=== PATIENT | female | born 1975 | race Caucasian/White ===

== ENCOUNTER 2020-03-05 11:48 | Emergency (ER) | payer OTHER, SELFPAY ==
[2020-03-05 12:19] VITALS: BP 147/60; PULSE 81; RESP 17; TEMP 36.4; O2SAT 98; BMI 37.8
--- NOTE | 2020-03-05 12:35 | XR_ITS ---
EXAMINATION: XR KNEE, RIGHT CLINICAL INFORMATION: Right knee pain. COMPARISON: None TECHNIQUE: Four views of the right knee. FINDINGS: Bones and soft tissues are normal. No fracture or joint effusion. Alignment is anatomic. Joint spaces are well maintained. No abnormal soft tissue calcification. XR/XR knee RT 4V IMPRESSION: Unremarkable right knee.
--- NOTE | 2020-03-05 12:46 | ED_ITS ---
HPI - General Adult General Chief complaint: Extremity Injury, Lower Stated complaint: KNEE PAIN,NO INJ Time Seen by Provider: 03/05/20 12:17 Source: patient Mode of arrival: ambulatory Limitations: no limitations History of Present Illness HPI narrative: 44 yo female previously healthy here with acute on chronic right knee pain worsened with weight bearing x 1 1/2 months. She has had these symptoms for years. No injury or trauma. Today when she woke up she felt like her knee was unstable and it might give out on her and that is when she became concerned and brought herself into the emergency department. She did call her primary care doctor into the appointment tomorrow morning at 07:45. Denies redness, warmth, fevers, chills, posterior knee pain. Onset (ago): month(s) (1 1/2 months ) Location: lower extremity (Right knee ) Radiation: non-radiation Severity: mild Quality: aching Pain Consistency: intermittent Relieving factors: none Exacerbating factors: none Associated symptoms: denies other symptoms Treatments prior to arrival: none Related Data Previous Rx's Medication Instructions Recorded naproxen 500 mg PO BID PRN #10 tab 03/05/20 Allergies Allergy/AdvReac Type Severity Reaction Status Date / Time SEASONAL ALLERGIES Allergy Intermediate RUNNY Uncoded 11/22/19 15:52 NOSE, PRESSURE HEADACHE Review of Systems Review of Systems: Yes all other systems are reviewed and are negative Constitutional: Constitutional: Reports no additional constitutional c omplaints, Denies body ache(s), Denies chills, Denies fever(s), Denies headache(s) and Denies weakness Eyes: Eyes: Reports no additional eye complaints and Denies change in vision ENT: Reports system reviewed and no additional complaints, except as documented, Denies dizziness, Denies headache(s), Denies nasal congestion, Denies nasal discharge and Denies neck pain Cardiovascular: Cardiovascular: Reports no additional cardiovascular complaints, Denies chest pain, Denies leg edema and Denies dyspnea Respiratory: Respiratory: Reports no additional respiratory complaints, Denies cough and Denies dyspnea Gastrointestinal: Gastrointestinal: Reports no additional gastrointestinal complaints, Denies abdominal pain, Denies diarrhea, Denies nausea and Denies vomiting Genitourinary: Genitourinary: Reports no additional female genitourinary complaints and Denies urinary incontinence Musculoskeletal: Musculoskeletal: Reports no additional musculoskeletal complaints, Denies back pain, Reports arthralgias, Denies joint swelling, Denies limited range of motion, Denies neck pain, Denies numbness and Denies tingling Integumentary/Breasts: Skin/Breast: Reports system reviewed and no additional complaints, except as docu and Denies rash Neurologic: Reports system reviewed and no additional complaints, except as documented, Denies Abnormal speech present, Denies dizziness, Denies headache(s), Denies numbness, Denies tingling and Denies weakness PMFSH Past Medical History Attestation statement: The following information was validated with the patient. Source: old records reviewed, obtained from family and nursing notes reviewed Social History Social History Advance Directives: No Advance Directives Information Provided: No Physical Exam Vital Signs: Vital Signs: Last Vital Signs Temp 97.5 F 03/05/20 12:19 Pulse 81 03/05/20 12:19 Resp 17 03/05/20 12:19 BP 147/60 H 03/05/20 12:19 Pulse Ox 98 03/05/20 12:19 Body Mass Index 37.8 Const: General: cooperative, healthy appearing, comfortable and no acute distress Orientation/consciousness: patient oriented x3 Limitations: no limitations HENMT: Head: Yes normal to inspection Ears: hearing grossly normal bilaterally General nose exam: Normal external nose present Face and sinus: Yes normal facial exam Mouth: Normal oral and palatal mucosa present Throat: Yes posterior oropharynx normal Eyes: General: appearance normal, both eyes and all related structures Pupils: Equal, round and reactive pupils present Neck: Neck: Yes normal visual inspection Chest: Chest palpation & inspection: normal inspection of the chest Resp: Effort & Inspection: normal respiratory effort Auscultation: clear to auscultation bilaterally Cardio: Rate: regular rate Rhythm: regular rhythm Peripheral pulses: Peripheral pulses 2+ throughout GI: Inspection: Yes normal to inspection Palpation (GI): Soft to palpation and nontender Auscultation: normal bowel sounds Back/Spine/Pelvis: Thoracic/Lumbar Spine: thoracic and lumbar spine normal to inspection Skin: General skin exam: no rashes or lesions noted Neuro: General: patient oriented x3, no focal motor deficits and normal sensation to monofilament Cranial nerves: Yes Equal, round and reactive pupils present Cognition (Neuro): normal cognition Speech: No Abnormal speech present Gait exam (Neuro): Normal gait present Motor exam (neuro): 5/5 motor strength present throughout Extrem: Other: Right knee is normal to appearance. The patient has tenderness over the general anterior knee and along the medial and lateral joint lines. She is able to flex and extend the knee with no difficulty. There is no swelling, warmth, redness. General: Yes normal to inspection Course Course Course Narrative: X-rays negative for underlying bony abnormality. Discussed findings with the patient. May be underlying ligament injury versus sprain vs meniscus injury. Recommended Daniel wrap, crutches with limited weight-bearing, rice and follow-up with primary care doctor for further instructions. Reviewed worrisome signs and symptoms and when to return to the emergency department. Comfortable discharge home. Medical Decision Making Imaging Data knee xray: Attestation: I personally reviewed and interpreted this imaging study as follows: Radiologist's impression: EXAMINATION: XR KNEE, RIGHT CLINICAL INFORMATION: Right knee pain. COMPARISON: None TECHNIQUE: Four views of the right knee. FINDINGS: Bones and soft tissues are normal. No fracture or joint effusion. Alignment is anatomic. Joint spaces are well maintained. No abnormal soft tissue calcification. XR/XR knee RT 4V IMPRESSION: Unremarkable right knee. Discharge Plan Discharge Clinical Impression: Knee sprain Qualifiers: Encounter type: initial encounter Involved ligament of knee: unspecified ligament Laterality: right Qualified Code(s): S83.91XA - Sprain of unspecified site of right knee, initial encounter Patient Disposition: Home, Self-Care Instructions: Knee Sprain (ED) Additional Instructions: Use the Daniel wrap and crutches for the next several days Limit weight-bearing Keep your appointment tomorrow with her primary care doctor Apply ice Prescriptions: New naproxen 500 mg tablet 500 mg PO BID PRN (Reason: pain) Qty: 10 RF: 0 Referrals: Physician,Unknown [Primary Care Provider] - 2 days Stand Alone Forms: Work/School Release Interventions: ED Discharge Assessment Last Done: 03/05/20 13:36 Discharge Date/Time: 03/05/20 13:37
== END 2020-03-05 13:37 | disposition home or self-care (01) ==
PROVIDERS: Emergency Provider Emergency Medicine Emergency Medical Services
DX: S83.91XA Sprain of unspecified site of right knee, initial encounter (principal); X58.XXXA Exposure to other specified factors, initial encounter; Y93.9 Activity, unspecified; Y92.9 Unspecified place or not applicable; Y99.9 Unspecified external cause status
CPT/HCPCS: 73564; 99282; 99283

== ENCOUNTER 2023-07-21 11:13 | Emergency (ER) | payer OTHER, SELFPAY ==
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
[2023-07-21 11:30] VITALS: BP 106/63; PULSE 73; RESP 16; TEMP 37; O2SAT 99; BMI 41.0
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
[2023-07-21] MEDS: Ibuprofen 600 MG TABLET PO (11:35)
--- OUTSIDE RECORDS SUMMARY | 2023-07-21 14:24 | XMS_ITS | Continuity of Care Document ---
Author Organization [facility] Address [address] [place] [id number]- Care Team Providers Care Supervising Producer Name Role Phone Flora Jay NP Primary Care Physician [place] [facility] [place]26[place] - 05/14/[address] [id number] Attending Physician: Flora Jay NP Admitting Physician: Flora Jay NP Referring Physician: Flora Jay NP Allergies, Adverse Reactions, Alerts Substance Reaction Severity Status NKA Active Immunizations Given and Recorded Vaccine Date Status Refusal Reason tetanus/diphtheria/pertussis, acel(Tdap) 1 04/05/19 Given Influenza Virus Vaccine (oldterm) 2 12/08/18 Recor ded 1Result Comment: [facility] 14021-652-39 2Result Comment: work Medications betamethasone topical dipropionate 0.05% cream 1 application, Topically, 2 times a day, # 45 Gm, 0 Refills, Maintenance, 06/11/19 15:36:00 EDT, Cream, [facility], 1 application Topically 2 times a day, 162, cm, 04/25/19 9:34:00 EST, Height Start Date: 06/11/19 Status: Ordered CPAP Machine See Instructions, # 1 each, Maintenance, patient should be started on AutoCpap 8-20cm H20 with compliance data followed. use nightly for lifetime 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, 03/02/18 10:45:00 EST, Compound Start Date: 03/02/18 Status: Ordered CPAP Equipment See Instructions, # 1 each, Refills 11, Tot. Refills 11, Maintenance, Mask,tubing, filters, head gear, chin strap, wther chamber. use nightly for lifetime with compressor. 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, 162, cm, 12/21/19 8:09:00 EDT, Height Start Date: 12/21/19 Status: Ordered Singulair 10 mg oral tablet 10 mg, 1, tablet, By Mouth, Daily, # 30 tablet, Refills 0, Tot. Refills 0, Maintenance, 05/31/18 16:17:26 EDT, Route to Pharmacy Electronically, [id number], [facility] [place] Start Date: 05/31/18 Stop Date: 06/30/18 Status: Ordered Problem List Condition Effective Dates Status Health Status Inform ant Allergic rhinitis(Confirmed) Active Chronic headaches(Confirmed) Active Chronic GERD(Confirmed) Active Sleep apnea(Confirmed) Active Social History Social History Type Response Smoking Status Never (less than 100 in lifetime) entered on: 10/19/18 Sex
--- OUTSIDE RECORDS SUMMARY | 2023-07-21 14:25 | XMS_ITS | Continuity of Care Document ---
Author Organization [facility] Address [address] [place] [id number]- Care Team Providers Care Catalogue Compiler Name Role Phone Flora Jay NP Primary Care Physician Encounter [facility] Date(s): 06/11/19 - 06/18/19 [facility] [address] [place] [id number]- [facility] Encounter Diagnosis Rash(Discharge Diagnosis) - 06/11/19 Attending Physician: Flora Jay NP Allergies, Adverse Reactions, Alerts Substance Reaction Severity Status NKA Active Immunizations Given and Recorded Vaccine Date Status Refusal Reason tetanus/diphtheria/pertussis, acel(Tdap) 1 04/05/19 Given Influenza Virus Vaccine (oldterm) 2 12/08/18 Recor ded 1Result Comment: [facility] [id number] 2Result Comment: work Medications betamethasone topical dipropionate 0.05% cream 1 application, Topically, 2 times a day, # 45 Gm, 0 Refills, Maintenance, 06/11/19 15:36:00 EDT, Cream, [facility], 1 application Topically 2 times a [...] 2 times a day, # 30 tablet, 0 Refills, Maintenance, 07/04/18 13:45:44 EDT, EC Tablet Start Date: 07/04/18 Status: Ordered Singulair 10 mg oral tablet 10 mg, 1, tablet, By Mouth, Daily, # 30 tablet, Refills 0, Tot. Refills 0, Maintenance, 05/31/18 16:17:26 EDT, Route to Pharmacy Electronically, [id number], [facility] [place] Start Date: 05/31/18 Stop Date: 06/30/18 Status: Ordered Problem List Condition Effective Dates Status Health Status Inform ant Allergic rhinitis(Confirmed) Active Chronic headaches(Confirmed) Active Chronic GERD(Confirmed) Active Sleep apnea(Confirmed) Active Diagnosis Diagnosis Type Effective Dates Health Status Clini tyler Service Informant Rash Discharge Diagnosis 06/11/19 Social History Social History Type Response Smoking Status Never (less than 100 in lifetime) entered on: 10/19/18 Sex
--- OUTSIDE RECORDS SUMMARY | 2023-07-21 14:25 | XMS_ITS | Continuity of Care Document ---
Author Organization [facility] Address [address] [facility], [address] Floor, [address] [place] [phone]- Care Team Providers Care Edi Programmer Analyst Name Role Phone Pierre MCLEOD, Flora Núñez Primary Care Physician Encounter [facility] Date(s): 02/13/19 - 02/23/19 [facility] [address] [facility], 3rd Floor, [address] [place] [address]- [facility] Attending Physician: Cynthia Waters Admitting Physician: Admtr, Cynthia Referring Physician: Admtr, Ar8 Allergies, Adverse Reactions, Alerts Substance Reaction Severity Status NKA Active Immunizations Given and Recorded Vaccine Date Status Refusal Reason Influenza Virus Vaccine (oldterm) 1 12/08/18 Recor ded 1Result Comment: work Medications CPAP Machine See Instructions, # 1 each, [...] EST, Compound Start Date: 03/02/18 Status: Ordered ibuprofen 800 mg oral tablet 800 mg, 1, tablet, By Mouth, 3 times a day, for 30 days, # 90 tablet, Refills 0, Tot. Refills 0, Acute 03/07/19 10:07:02 EST, 02/05/19 10:07:02 EST, Route to Pharmacy Electronically, [id number], [facility]... Start Date: 02/05/19 Stop Date: 03/07/19 Status: Ordered Lotrisone 0.05%-1% cream 1 application, Topically, 2 times a day, # 45 Gm, 0 Refills, Maintenance, 11/15/18 14:58:46 EDT, Cream, 1 application Topically 2 times a day Start Date: 11/15/18 Status: Ordered omeprazole 20 mg oral delayed [...] 05/31/18 16:17:26 EDT, Route to Pharmacy Electronically, [id number], [facility] - Start Date: 05/31/18 Stop Date: 06/30/18 Status: Ordered Problem List Condition Effective Dates Status Health Status Inform ant Allergic rhinitis(Confirmed) Active Chronic headaches(Confirmed) Active Chronic GERD(Confirmed) Active Sleep apnea(Confirmed) Active Social History Social History Type Response Smoking Status Never (less than 100 in lifetime) entered on: 10/19/18 Sex
--- OUTSIDE RECORDS SUMMARY | 2023-07-21 14:25 | XMS_ITS | Continuity of Care Document ---
Author Organization [facility] Address [address] [place] [phone]- Care Team Providers Care Pigment Making Supervisor Name Role Phone Flora Jay NP Primary Care Physician Encounter [facility] Date(s): 06/18/21 - 06/25/[address] [address]- Encounter Diagnosis Neck ache(Discharge Diagnosis) - 06/18/21 Muscle spasm(Discharge Diagnosis) - 06/18/21 Attending Physician: Flora Jay NP Allergies, Adverse Reactions, Alerts No Known Allergies Immunizations Given and Recorded Vaccine Date Status Refusal Reason influenza virus vaccine, inactivated 1 12/29/20 Gi markie SARS-CoV-2 (COVID-19) mRNA-1273 vaccine 04/04/20 R ecorded SARS-CoV-2 (COVID-19) mRNA-1273 vaccine 03/04/20 R ecorded tetanus/diphtheria/pertussis, acel(Tdap) 2 04/05/19 Given Influenza Virus Vaccine (oldterm) 3 12/08/18 Recor ded 1Result Comment: [facility][NOTE 3]# [id number] 2Result Comment: [facility][NOTE 3] [id number] 3Result Comment: work Medications CPAP Machine See Instructions, [...] EST, Compound Start Date: 03/02/18 Status: Ordered cyclobenzaprine 5 mg oral tablet 1 tablet = 5 mg, By Mouth, 3 times a day, for 10 days, # 30 tablet, 0 Refills, Acute 06/28/21 14:51:00 EDT, 06/18/21 14:51:00 EDT, Tablet, [facility], Partial fill upon patient request if the prescription is for a schedule II opioid drug., 1... Start Date: 06/18/21 Stop Date: 06/28/21 Status: Ordered ibuprofen 800 mg oral tablet 800 mg, 1, tablet, By Mouth, 3 times a day, PRN, # 40 tablet, Refills 0, Tot. Refills 0, Maintenance, for pain, 06/18/21 14:50:00 EDT, Route to Pharmacy Electronically, [facility], Partial fill upon patient request if the prescription is for... Start Date: 06/18/21 Stop Date: 07/18/21 Status: Ordered omeprazole 20 mg oral delayed release tablet 1 tablet = 20 mg, By Mouth, Daily, # 30 tablet, 0 Refills, Maintenance, 06/18/21 14:53:00 EDT, CR Tablet, [facility], Partial fill upon patient request if the prescription is for a scheduleII opioid drug., 162, cm, 06/18/21 14:35:00 EDT, He... Start Date: 06/18/21 Status: Ordered Problem List Condition Effective Dates Status Health Status Inform ant Allergic rhinitis(Confirmed) Active Chronic headaches(Confirmed) Active Chronic GERD(Confirmed) Active Severe obesity(Confirmed) Active Sleep apnea(Confirmed) Active Diagnosis Diagnosis Type Effective Dates Health Status Cl inical Service Informant Neck ache Discharge Diagnosis 06/18/21 Muscle spasm Discharge Diagnosis 06/18/21 Vital Signs Most recent to oldest [Reference Range]: 1 2 Height 162 cm (06/18/21 2:56 PM) 162 cm (06/18/21 2:35 PM) Weight 106.7 kg (06/18/21 2:35 PM) Oxygen Saturation [94-100 %] 98 % (06/18/21 2:35 PM) Pulse Rate [55-90 bpm] 86 bpm (06/18/21 2:35 PM) Body Mass Index [18.5-24.99] 40.66 *>HHI* (06/18/21 2:35 PM) Blood Pressure [90-138/55-84 mm Hg] 118/ 76mm Hg (06/18/21 2:56 PM) 119/73mm Hg (06/18/21 2:35 PM) Temperature [96.8-100.4 DegF] 98.5 DegF (06/18/21 2:35 PM) Mode of Delivery (Oxygen) Room air (06/18/21 2:35 PM) Blood pressure sites Arm, left (06/18/21 2:56 PM) Arm, left (06/18/21 2:35 PM) Temperature Route Temporal (06/18/21 2:35 PM) Weight Obtained Via Standing scale (06/18/21 2:35 PM) Social History Social History Type Response Smoking Status Never (less than 100 in lifetime) entered on: 10/19/18 Sex
--- OUTSIDE RECORDS SUMMARY | 2023-07-21 14:25 | XMS_ITS | Continuity of Care Document ---
Author Organization [facility] Adult Address [address] [place] [address]- Care Team Providers Care Physical Therapy Nurse Name Role Phone Pierre MCLEOD, Flora Núñez Primary Care Physician Encounter [facility] Date(s): 09/08/20 - 10/08/20 [facility] [address] [place] [address]- Allergies, Adverse Reactions, Alerts Substance Reaction Severity Status NKA Active Immunizations Given and Recorded Vaccine Date Status Refusal Reason SARS-CoV-2 (COVID-19) mRNA-1273 vaccine 04/04/20 R ecorded SARS-CoV-2 (COVID-19) mRNA-1273 vaccine 03/04/20 R ecorded tetanus/diphtheria/pertussis, acel(Tdap) 1 04/05/19 Given Influenza Virus Vaccine (oldterm) 2 12/08/18 Recor ded 1Result Comment: [facility] [id number] 2Result Comment: work Medications betamethasone topical dipropionate 0.05% cream 1 application, Topically, 2 times a day, # 45 Gm, 0 Refills, Maintenance, 06/11/19 15:36:00 EDT, Cream, [facility], 1 application Topically 2 times a [...] Refills, Maintenance, 12/21/19 8:19:00 EDT, EC Tablet, [facility], 162, cm, 12/21/19 8:09:00 EDT, Height Start Date: 12/21/19 Status: Ordered Singulair 10 mg oral tablet 10 mg, 1, tablet, By Mouth, Daily, # 30 tablet, Refills 0, Tot. Refills 0, Maintenance, 05/31/18 16:17:26 EDT, Route to Pharmacy Electronically, [id number], [facility] - Start Date: 05/31/18 Stop Date: 06/30/18 Status: Ordered Problem List Condition Effective Dates Status Health Status Inform ant Allergic rhinitis(Confirmed) Active Chronic headaches(Confirmed) Active Chronic GERD(Confirmed) Active Sleep apnea(Confirmed) Active Social History Social History Type Response Smoking Status Never (less than 100 in lifetime) entered on: 10/19/18 Sex
--- OUTSIDE RECORDS SUMMARY | 2023-07-21 14:25 | XMS_ITS | Continuity of Care Document ---
Author Organization [facility] Address [address] [place] [phone]- Care Team Providers Care Lobsterman Name Role Phone Pierre MCLEOD, Flora Núñez Primary Care Physician Encounter [facility] Date(s): 03/11/20 - 04/16/[address] [id number] Attending Physician: Etelvina MCLEOD, Soco Wiggins Admitting Physician: Etelvina MCLEOD, Soco Wiggins Referring Physician: Etelvina MCLEOD, Soco Wiggins Allergies, Adverse Reactions, Alerts Substance Reaction Severity Status NKA Active Immunizations Given and Recorded Vaccine Date Status Refusal Reason tetanus/diphtheria/pertussis, acel(Tdap) 1 04/05/19 Given Influenza Virus Vaccine (oldterm) 2 12/08/18 Recor ded 1Result Comment: [facility] [id number] 2Result Comment: work Medications betamethasone topical dipropionate 0.05% cream 1 application, Topically, 2 times a day, # 45 Gm, 0 Refills, Maintenance, 06/11/19 15:36:00 EDT, Cream, [facility], 1 application Topically 2 times a [...] Refills, Maintenance, 12/21/19 8:19:00 EDT, EC Tablet, [facility], 162, cm, 12/21/19 8:09:00 EDT, Height Start Date: 12/21/19 Status: Ordered Singulair 10 mg oral tablet 10 mg, 1, tablet, By Mouth, Daily, # 30 tablet, Refills 0, Tot. Refills 0, Maintenance, 05/31/18 16:17:26 EDT, Route to Pharmacy Electronically, [id number], [facility] - Start Date: 05/31/18 Stop Date: 06/30/18 Status: Ordered Problem List Condition Effective Dates Status Health Status Inform ant Allergic rhinitis(Confirmed) Active Chronic headaches(Confirmed) Active Chronic GERD(Confirmed) Active Sleep apnea(Confirmed) Active Social History Social History Type Response Smoking Status Never (less than 100 in lifetime) entered on: 10/19/18 Sex
--- OUTSIDE RECORDS SUMMARY | 2023-07-21 14:25 | XMS_ITS | Continuity of Care Document ---
Author Organization [facility] Adult Address [address] [place] [address]- Care Team Providers Care Finance Manager Name Role Phone Pierre MCLEOD, Flora Núñez Primary Care Physician [place] [facility] [place] 10/05/19 - 11/04/19 [facility] [address] [place] [address]- [facility] Allergies, Adverse Reactions, Alerts Substance Reaction Severity Status NKA Active Immunizations Given and Recorded Vaccine Date Status Refusal Reason tetanus/diphtheria/pertussis, acel(Tdap) 1 04/05/19 Given Influenza Virus Vaccine (oldterm) 2 12/08/18 Recor ded 1Result Comment: [facility] [id number] 2Result Comment: work Medications betamethasone topical dipropionate 0.05% cream 1 application, Topically, 2 times a day, # 45 Gm, 0 Refills, Maintenance, 06/11/19 15:36:00 EDT, Cream, [facility], 1 application Topically 2 times [...] 05/31/18 16:17:26 EDT, Route to Pharmacy Electronically, [id number], [facility] [place] Start Date: 05/31/18 Stop Date: 06/30/18 Status: Ordered Problem List Condition Effective Dates Status Health Status Inform ant Allergic rhinitis(Confirmed) Active Chronic headaches(Confirmed) Active Chronic GERD(Confirmed) Active Sleep apnea(Confirmed) Active Social History Social History Type Response Smoking Status Never (less than 100 in lifetime) entered on: 10/19/18 Sex
--- OUTSIDE RECORDS SUMMARY | 2023-07-21 14:25 | XMS_ITS | Continuity of Care Document ---
Author Organization [facility] Adult Address [address] [place] [address]- Care Team Providers Care Station Attendant Name Role Phone Pierre FIELD SCOUT, Flora Núñez Primary Care Physician En[place] [facility] Date(s): 10/08/21 - 11/07/21 [facility] [address] [place] [address]- Allergies, Adverse Reactions, Alerts No Known Allergies Immunizations Given and Recorded Vaccine Date Status Refusal Reason influenza virus vaccine, inactivated 1 12/29/20 Gi markie SARS-CoV-2 (COVID-19) mRNA-1273 vaccine 04/04/20 R ecorded SARS-CoV-2 (COVID-19) mRNA-1273 vaccine 03/04/20 R ecorded tetanus/diphtheria/pertussis, acel(Tdap) 2 04/05/19 Given Influenza Virus Vaccine (oldterm) 3 12/08/18 Recor ded 1Result Comment: [facility]# [id number] 2Result Comment: [facility] [phone] 3Result Comment: work Medications CPAP Machine See [...] EST, Compound Start Date: 03/02/18 Status: Ordered hydrocortisone 2.5% topical cream 1 application, Topically, 3 times a day, # 60 Gm, 1 Refills, Maintenance, 10/29/21 14:00:00 EDT, Cream, [facility], Partial fill upon patient request if the prescription is for a schedule II opioid drug., 1 application Topically 3 times a da... Start Date: 10/29/21 Stop Date: 12/28/21 Status: Ordered ibuprofen 800 mg oral tablet 800 mg, 1, tablet, By Mouth, 3 times a day, PRN, # 40 tablet, Refills 1, Tot. Refills 1, Maintenance, for pain, 10/08/21 13:20:00 EDT, Route to Pharmacy Electronically, [facility], Partial fill upon patient request if the prescription is for... Start Date: 10/08/21 Stop Date: 12/07/21 Status: Ordered loratadine 10 mg oral tablet 10 mg, 1, tablet, By Mouth, Daily, # 30 tablet, Refills 0, Tot. Refills 0, Maintenance, 10/29/21 14:03:00 EDT, Route to Pharmacy Electronically, [facility], Partial fill upon patient request if the prescription is for a schedule II opioid dr... Start Date: 10/29/21 Stop Date: 11/28/21 Status: Ordered omeprazole 20 mg oral delayed release tablet 1 tablet = 20 mg, By Mouth, Daily, # 30 tablet, 0 Refills, Maintenance, 06/18/21 14:53:00 EDT, CR Tablet, [facility], Partial fill upon patient request if the prescription is for a scheduleII opioid drug., 162, cm, 06/18/21 14:35:00 EDT, He... Start Date: 06/18/21 Status: Ordered Problem List Condition Effective Dates Status Health Status Inform ant Allergic rhinitis(Confirmed) Active Chronic headaches(Confirmed) Active Chronic GERD(Confirmed) Active Severe obesity(Confirmed) Active Sleep apnea(Confirmed) Active Social History Social History Type Response Smoking Status Never (less than 100 in lifetime) entered on: 10/19/18 Sex Care Team Personnel Name: Flora Jay NP Address: [address] [place] [id number]
--- OUTSIDE RECORDS SUMMARY | 2023-07-21 14:25 | XMS_ITS | Continuity of Care Document ---
Author Organization [facility] Adult Address [address] [place] [address]- Care Team Providers Care Ophthalmic Medical Assistant Name Role Phone Pierre MCLEOD, Flora Núñez Primary Care Physician Encounter [facility] Date(s): 04/05/19 - 04/12/19 [facility] [address] [place] [address] [facility] Encounter Diagnosis Cellulitis(Discharge Diagnosis) - 04/05/19 Attending Physician: Flora Jay NP Allergies, Adverse Reactions, Alerts Substance Reaction Severity Status NKA Active Immunizations Given and Recorded Vaccine Date Status Refusal Reason tetanus/diphtheria/pertussis, acel(Tdap) 1 04/05/19 Given Influenza Virus Vaccine (oldterm) 2 12/08/18 Recor ded 1Result Comment: [facility] [id number] 2Result Comment: work Medications CPAP Machine See Instructions, [...] EST, Compound Start Date: 03/02/18 Status: Ordered Lotrisone 0.05%-1% cream 1 application, [...] 05/31/18 16:17:26 EDT, Route to Pharmacy Electronically, [id number], [facility] [place] Start Date: 05/31/18 Stop Date: 06/30/18 Status: Ordered Problem List Condition Effective Dates Status Health Status Inform ant Allergic rhinitis(Confirmed) Active Chronic headaches(Confirmed) Active Chronic GERD(Confirmed) Active Sleep apnea(Confirmed) Active Diagnosis Diagnosis Type Effective Dates Health Status Clini tyler Service Informant Cellulitis Discharge Diagnosis 04/05/19 Vital Signs Most recent to oldest [Reference Range]: 1 2 Height 162 cm (04/05/19 11:11 AM) 162 cm (04/05/19 10:47 AM) Weight 107.2 kg (04/05/19 10:47 AM) Oxygen Saturation [94-100 %] 97 % (04/05/19 10:47 AM) Pulse Rate [55-90 bpm] 76 bpm (04/05/19 10:47 AM) Body Mass Index [18.5-24.99] 40.85 *>HHI* (04/05/19 10:47 AM) Blood Pressure [90-138/55-84 mm Hg] 124/ 76mm Hg (04/05/19 11:11 AM) 110/74mm Hg (04/05/19 10:47 AM) Temperature [96.8-100.4 DegF] 98.2 DegF (04/05/19 10:47 AM) Mode of Delivery (Oxygen) Room air (04/05/19 10:47 AM) Blood pressure sites Arm, left (04/05/19 11:11 AM) Arm, right (04/05/19 10:47 AM) Temperature Route Oral (04/05/19 10:47 AM) Weight Obtained Via Standing scale (04/05/19 10:47 AM) Social History Social History Type Response Smoking Status Never (less than 100 in lifetime) entered on: 10/19/18 Sex
--- OUTSIDE RECORDS SUMMARY | 2023-07-21 14:25 | XMS_ITS | Continuity of Care Document ---
Author Organization [facility] Adult Address [address] [place] [address]- Care Team Providers Care Land Acquisition Manager Name Role Phone Flora Jay NP Primary Care Physician Encounter [facility] Date(s): 12/03/19 - 12/10/19 [facility] [address] [place] [phone] [facility] Encounter Diagnosis Hypoglycemia(Discharge Diagnosis) - 12/03/19 Attending Physician: Flora Jay NP Allergies, Adverse Reactions, Alerts Substance Reaction Severity Status NKA Active Immunizations Given and Recorded Vaccine Date Status Refusal Reason tetanus/diphtheria/pertussis, acel(Tdap) 1 04/05/19 Given Influenza Virus Vaccine (oldterm) 2 12/08/18 Recor ded 1Result Comment: [facility] [id number] 2Result Comment: work Medications betamethasone topical dipropionate 0.05% cream 1 application, Topically, 2 times a day, # 45 Gm, 0 Refills, Maintenance, 06/11/19 15:36:00 EDT, Cream, [facility], 1 application Topically 2 times [...] 05/31/18 16:17:26 EDT, Route to Pharmacy Electronically, [id number], [facility] [place] Start Date: 05/31/18 Stop Date: 06/30/18 Status: Ordered Problem List Condition Effective Dates Status Health Status Inform ant Allergic rhinitis(Confirmed) Active Chronic headaches(Confirmed) Active Chronic GERD(Confirmed) Active Sleep apnea(Confirmed) Active Diagnosis Diagnosis Type Effective Dates Health Status Cl inical Service Informant Hypoglycemia Discharge Diagnosis 12/03/19 Vital Signs Most recent to oldest [Reference Range]: 1 2 Height 162 cm (12/03/19 12:13 PM) 162 cm (12/03/19 11:58 AM) Weight 102.2 kg (12/03/19 11:58 AM) Oxygen Saturation [94-100 %] 98 % (12/03/19 11:58 AM) Pulse Rate [55-90 bpm] 87 bpm (12/03/19 11:58 AM) Body Mass Index [18.5-24.99] 38.94 *>HHI* (12/03/19 11:58 AM) Blood Pressure [90-138/55-84 mm Hg] 110/ 76mm Hg (12/03/19 12:13 PM) 110/80mm Hg (12/03/19 11:58 AM) Respiratory Rate [16-30 br/min] 16 br/mi n (12/03/19 11:58 AM) Mode of Delivery (Oxygen) Room air (12/03/19 11:58 AM) Blood pressure sites Arm, left (12/03/19 12:13 PM) Arm, right (12/03/19 11:58 AM) Weight Obtained Via Standing scale (12/03/19 11:58 AM) Social History Social History Type Response Smoking Status Never (less than 100 in lifetime) entered on: 10/19/18 Sex
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
--- OUTSIDE RECORDS SUMMARY | 2023-07-21 14:25 | XMS_ITS | Continuity of Care Document ---
Author Organization [facility] Adult Address [address] [place] [phone]- Care Team Providers Care Hanger Name Role Phone Pierre MCLEOD, Flora Núñez Primary Care Physician Encounter [facility] Date(s): 03/06/20 - 03/13/20 [facility] Adult [address] [place] [phone]- Encounter Diagnosis Right knee sprain(Discharge Diagnosis) - 03/06/20 Attending Physician: Etelvina MCLEOD, Soco Wiggins Referring Physician: Pierre MCLEOD, Flora Núñez Allergies, Adverse Reactions, Alerts Substance Reaction Severity Status NKA Active Immunizations Given and Recorded Vaccine Date Status Refusal Reason tetanus/diphtheria/pertussis, acel(Tdap) 1 04/05/19 Given Influenza Virus Vaccine (oldterm) 2 12/08/18 Recor ded 1Result Comment: [facility] [id number] 2Result Comment: work Medications betamethasone topical dipropionate 0.05% cream 1 application, Topically, 2 times a day, # 45 Gm, 0 Refills, Maintenance, 06/11/19 15:36:00 EDT, Cream, [facility], 1 application Topically 2 times a [...] tablet, Refills 0, Tot. Refills 0, Acute 03/19/20 13:47:00 EST, 02/18/20 13:47:00 EST, Route to Pharmacy Electronically, [facility], 162, cm, 12/21/19 8:24:00 EDT, Height Start Date: 02/18/20 Stop Date: 03/19/20 Status: Ordered omeprazole 20 mg oral delayed [...] 05/31/18 16:17:26 EDT, Route to Pharmacy Electronically, [id number], [facility] [place] Start Date: 05/31/18 Stop Date: 06/30/18 Status: Ordered Problem List Condition Effective Dates Status Health Status Inform ant Allergic rhinitis(Confirmed) Active Chronic headaches(Confirmed) Active Chronic GERD(Confirmed) Active Sleep apnea(Confirmed) Active Diagnosis Diagnosis Type Effective Dates Health Status Cl inical Service Informant Right knee sprain Discharge Diagnosis 03/06/20 Vital Signs Most recent to oldest [Reference Range]: 1 Height 162 cm (03/05/20 4:59 PM) Social History Social History Type Response Smoking Status Never (less than 100 in lifetime) entered on: 10/19/18 Sex
--- OUTSIDE RECORDS SUMMARY | 2023-07-21 14:25 | XMS_ITS | Continuity of Care Document ---
Author Organization [facility] Adult Address [address] [place] [address]- Care Team Providers Care Communications Instructor Name Role Phone Pierre NOC ANALYST, Flora Núñez Primary Care Physician Encounter [facility] [place] Date(s): 01/21/22 - 02/20/22 [facility] Adult [address] [place] [address]- Allergies, Adverse Reactions, Alerts No Known Allergies Immunizations Given and Recorded Vaccine Date Status Refusal Reason influenza virus vaccine, inactivated 1 12/29/20 Gi markie SARS-CoV-2 (COVID-19) mRNA-1273 vaccine 04/04/20 R ecorded SARS-CoV-2 (COVID-19) mRNA-1273 vaccine 03/04/20 R ecorded tetanus/diphtheria/pertussis, acel(Tdap) 2 04/05/19 Given Influenza Virus Vaccine (oldterm) 3 12/08/18 Recor ded 1Result Comment: [facility]# [id number] 2Result Comment: [facility] [id number] 3Result Comment: work Medications CPAP Machine See [...] 1 Refills, Maintenance, 10/29/21 14:00:00 EDT, Cream, [facility], Partial fill upon patient request if the prescription is for a schedule II opioid drug., 1 application Topically 3 times a da... Start Date: 10/29/21 Stop Date: 12/28/21 Status: Ordered ibuprofen 800 mg oral tablet 800 mg, 1, tablet, By Mouth, 3 times a day, PRN, # 90 tablet, Refills 3, Tot. Refills 3, Maintenance, for pain, 01/04/22 15:53:00 EDT, Route to Pharmacy Electronically, [facility], Partial fill upon patient request if the prescription is for... Start Date: 01/04/22 Stop Date: 05/04/22 Status: Ordered loratadine 10 mg oral tablet 10 mg, 1, tablet, By Mouth, Daily, # 30 tablet, Refills 0, Tot. Refills 0, Maintenance, 10/29/21 14:03:00 EDT, Route to Pharmacy Electronically, [facility], Partial fill upon patient request if the prescription is for a schedule II opioid drCristiano Start Date: 10/29/21 Stop Date: 11/28/21 Status: Ordered omeprazole 20 mg oral delayed release tablet 1 tablet = 20 mg, By Mouth, Daily, # 30 tablet, 0 Refills, Maintenance, 06/18/21 14:53:00 EDT, CR Tablet, [facility], Partial fill upon patient request if the prescription is for a scheduleII opioid drug., 162, cm, 06/18/21 14:35:00 EDT, He... Start Date: 06/18/21 Status: Ordered Problem List Condition Confirmation Course Effective Dates Status [facility] Informant Allergic rhinitis Confirmed Active Chronic headaches Confirmed Active Chronic GERD Confirmed Active Severe obesity Confirmed Active Sleep apnea Confirmed Active Social History Social History Type Response Smoking Status Never (less than 100 in lifetime) entered on: 10/19/18 Sex Patient Care team information Care Team Personnel Name: Flora Jay NP Position: S PCO Associate Professional Member Role: PCP Address: Address: [address] [place] [id number] Care Team Related Persons Name: BETH LOZA Address: [address] [place] [address] Name: CAROL LOZA Address: [address] [place] [address] Name: MARTHA LOO Address: home [address] [place] [address]
--- OUTSIDE RECORDS SUMMARY | 2023-07-21 14:25 | XMS_ITS | Continuity of Care Document ---
Author Organization [facility] Adult Address [address] [place] [address]- Care Team Providers Care Core Feeder Name Role Phone Pierre MANAGEMENT SME, Flora Núñez Primary Care Physician [place] [facility] [place](s): 01/21/23 - 02/20/23 [facility] Adult [address] [place] [address]- Attending Physician: Cynthia Waters Admitting Physician: Admtr Ar8 Referring Physician: Admtr, Ar8 Allergies, Adverse Reactions, Alerts No Known Allergies Immunizations Given and Recorded Vaccine Date Status Refusal Reason influenza virus vaccine, inactivated 1 12/29/20 Gi markie SARS-CoV-2 (COVID-19) mRNA-1273 vaccine 04/04/20 R ecorded SARS-CoV-2 (COVID-19) mRNA-1273 vaccine 03/04/20 R ecorded tetanus/diphtheria/pertussis, acel(Tdap) 2 04/05/19 Given Influenza Virus Vaccine (oldterm) 3 12/08/18 Recor ded 1Result Comment: [facility][NOTE 3]# [id number] 2Result Comment: [facility][NOTE 3] [id number] 3Result Comment: work Medications CPAP Machine See [...] 1 Refills, Maintenance, 10/29/21 14:00:00 EDT, Cream, [facility], Partial fill upon patient request if the [...] 01/04/22 15:53:00 EDT, Route to Pharmacy Electronically, [facility], Partial fill upon patient request if the prescription is for... Start Date: 01/04/22 Stop Date: 05/04/22 Status: Ordered loratadine 10 mg oral tablet 10 mg, 1, tablet, By Mouth, Daily, # 30 tablet, Refills 0, Tot. Refills 0, Maintenance, 10/29/21 14:03:00 EDT, Route to Pharmacy Electronically, [facility], Partial fill upon patient request if the prescription is for a schedule II opioid drCristiano Start Date: 10/29/21 Stop Date: 11/28/21 Status: Ordered NuLYTELY with Flavor Packs oral powder for reconstitution See Instructions, split prep method. drink one half the night before procedure at 5pm. drink secondhalf six hours prior to procedure., # 4,000 mL, 0 Refills, Maintenance, 08/26/22 17:00:00 EDT, [facility], test date, split prep method. pierre Start Date: 08/26/22 Status: Ordered omeprazole 20 mg oral delayed release tablet 1 tablet = 20 mg, By Mouth, Daily, # 30 tablet, 0 Refills, Maintenance, 06/18/21 14:53:00 EDT, CR Tablet, [facility], Partial fill upon patient request if the prescription is for a scheduleII opioid drug., 162, cm, 06/18/21 14:35:00 EDT, He... Start Date: 06/18/21 Status: Ordered Problem List Condition Confirmation Course Effective Dates Status [facility] Informant Allergic rhinitis Confirmed Active Chronic headaches Confirmed Active Chronic GERD Confirmed Active Severe obesity Confirmed Active Sleep apnea Confirmed Active Social History Social History Type Response Smoking Status Never (less than 100 in lifetime) entered on: 10/19/18 Sex Patient Care team information Care Team Personnel Name: Pierre MCLEOD, Flora Núñez Position: S PCO Associate Professional Member Role: PCP Address: Address: [address] [place] [address] [address] [place] [address]- Care Team Related Persons Name: BETH LOZA Address: [address] [place] [address] Name: CAROL LOZA Address: [address] [place] [address] Name: MARTHA LOO Address: [address] [place] [address]
--- OUTSIDE RECORDS SUMMARY | 2023-07-21 14:25 | XMS_ITS | Continuity of Care Document ---
Author Organization [facility] Adult Address [address] [place] [address]- Care Team Providers Care Nautical Instrument Mechanic Name Role Phone Pierre MCLEOD, Flora Núñez Primary Care Physician En[place] [facility] [place] Date(s): 03/06/20 - 04/05/20 [facility] Adult [address] [place] [address]- Attending Physician: Admtr, Cynthia Admitting Physician: [id number] Referring Physician: Admtr, Ar8 Allergies, Adverse Reactions, Alerts Substance Reaction Severity Status NKA Active Immunizations Given and Recorded Vaccine Date Status Refusal Reason tetanus/diphtheria/pertussis, acel(Tdap) 1 04/05/19 Given Influenza Virus Vaccine (oldterm) 2 12/08/18 Recor ded 1Result Comment: [facility] [id number] 2Result Comment: work Medications betamethasone topical dipropionate 0.05% cream 1 application, Topically, 2 times a day, # 45 Gm, 0 Refills, Maintenance, 06/11/19 15:36:00 EDT, Cream, [facility], 1 application Topically 2 times a [...] Refills, Maintenance, 12/21/19 8:19:00 EDT, EC Tablet, [facility], 162, cm, 12/21/19 8:09:00 EDT, Height Start Date: 12/21/19 Status: Ordered Singulair 10 mg oral tablet 10 mg, 1, tablet, By Mouth, Daily, # 30 tablet, Refills 0, Tot. Refills 0, Maintenance, 05/31/18 16:17:26 EDT, Route to Pharmacy Electronically, [id number], [facility] [place] Start Date: 05/31/18 Stop Date: 06/30/18 Status: Ordered Problem List Condition Effective Dates Status Health Status Inform ant Allergic rhinitis(Confirmed) Active Chronic headaches(Confirmed) Active Chronic GERD(Confirmed) Active Sleep apnea(Confirmed) Active Social History Social History Type Response Smoking Status Never (less than 100 in lifetime) entered on: 10/19/18 Sex
--- OUTSIDE RECORDS SUMMARY | 2023-07-21 14:25 | XMS_ITS | Continuity of Care Document ---
Author Organization [facility] Adult Address [address] [place] [address]- Care Team Providers Care Saute Chef Name Role Phone Pierre LACE INSPECTOR, Flora Núñez Primary Care Physician Encounter [facility] [place] Date(s): 10/29/21 - 11/28/21 [facility] Adult [address] [place] [address]- Attending Physician: Cynthia Waters Admitting Physician: AdmtrCynthia Referring Physician: Admtr, Ar8 Allergies, Adverse Reactions, Alerts No Known Allergies Immunizations Given and Recorded Vaccine Date Status Refusal Reason influenza virus vaccine, inactivated 1 12/29/20 Gi markie SARS-CoV-2 (COVID-19) mRNA-1273 vaccine 04/04/20 R ecorded SARS-CoV-2 (COVID-19) mRNA-1273 vaccine 03/04/20 R ecorded tetanus/diphtheria/pertussis, acel(Tdap) 2 04/05/19 Given Influenza Virus Vaccine (oldterm) 3 12/08/18 Recor ded 1Result Comment: [facility]# [id number] 2Result Comment: [facility] [id number] 3Result Comment: work Medications CPAP Machine See [...] 1 Refills, Maintenance, 10/29/21 14:00:00 EDT, Cream, [facility], Partial fill upon patient request if the prescription is for a schedule II opioid drug., 1 application Topically 3 times a da... Start Date: 10/29/21 Stop Date: 12/28/21 Status: Ordered ibuprofen 800 mg oral tablet 800 mg, 1, tablet, By Mouth, 3 times a day, PRN, # 90 tablet, Refills 0, Tot. Refills 0, Maintenance, for pain, 11/13/21 9:35:00 EDT, Route to Pharmacy Electronically, [facility], Partial fill upon patient request if the prescription is for... Start Date: 11/13/21 Stop Date: 12/13/21 Status: Ordered loratadine 10 mg oral tablet 10 mg, 1, tablet, By Mouth, Daily, # 30 tablet, Refills 0, Tot. Refills 0, Maintenance, 10/29/21 14:03:00 EDT, Route to Pharmacy Electronically, [facility], Partial fill upon patient request if the prescription is for a schedule II opioid drCristiano Start Date: 10/29/21 Stop Date: 11/28/21 Status: Ordered omeprazole 20 mg oral delayed release tablet 1 tablet = 20 mg, By Mouth, Daily, # 30 tablet, 0 Refills, Maintenance, 06/18/21 14:53:00 EDT, CR Tablet, [facility], Partial fill upon patient request if [...] on: 10/19/18 Sex Care Team Personnel Name: Pierre MCLEOD, Flora Núñez Address: [address] [place] [address] [place] [address]- [place]
--- OUTSIDE RECORDS SUMMARY | 2023-07-21 14:25 | XMS_ITS | Continuity of Care Document ---
Author Organization [facility] ter Address [address] [place] [address]- Care Team Providers Care Hotel Valet Attendant Name Role Phone Flora Jay NP Primary Care Physician [place] [facility] [place] 04/15/[address] [address] Attending Physician: Flora Jay NP Admitting Physician: Flora Jay NP Referring Physician: Flora Jay NP Allergies, Adverse Reactions, Alerts Substance Reaction Severity Status NKA Active Immunizations Given and Recorded Vaccine Date Status Refusal Reason tetanus/diphtheria/pertussis, acel(Tdap) 1 04/05/19 Given Influenza Virus Vaccine (oldterm) 2 12/08/18 Recor ded 1Result Comment: [facility] [phone] 2Result Comment: work Medications betamethasone topical dipropionate 0.05% cream 1 application, Topically, 2 times a day, # 45 Gm, 0 Refills, Maintenance, 06/11/19 15:36:00 EDT, Cream, [facility], 1 application Topically 2 times [...] EDT, EC Tablet, [facility], 162, cm, 12/21/19 8:09:00 EDT, Height Start Date: 12/21/19 Status: Ordered Singulair 10 mg oral tablet 10 mg, 1, tablet, By Mouth, Daily, # 30 tablet, Refills 0, Tot. Refills 0, Maintenance, 05/31/18 16:17:26 EDT, Route to Pharmacy Electronically, [id number], [facility] [place] Start Date: 05/31/18 Stop Date: 06/30/18 Status: Ordered Problem List Condition Effective Dates Status Health Status Inform ant Allergic rhinitis(Confirmed) Active Chronic headaches(Confirmed) Active Chronic GERD(Confirmed) Active Sleep apnea(Confirmed) Active Social History Social History Type Response Smoking Status Never (less than 100 in lifetime) entered on: 10/19/18 Sex
--- OUTSIDE RECORDS SUMMARY | 2023-07-21 14:25 | XMS_ITS | Continuity of Care Document ---
Author Organization [facility] Adult Address [address] [place] [address]- Care Team Providers Care Smelting Engineer Name Role Phone Pierre MCLEOD, Flora Núñez Primary Care Physician En[place] [facility] [place] Date(s): 02/18/20 - 03/19/20 [facility] Adult [address] [place] [id number]- Allergies, Adverse Reactions, Alerts Substance Reaction Severity Status NKA Active Immunizations Given and Recorded Vaccine Date Status Refusal Reason tetanus/diphtheria/pertussis, acel(Tdap) 1 04/05/19 Given Influenza Virus Vaccine (oldterm) 2 12/08/18 Recor ded 1Result Comment: [facility] [id number] 2Result Comment: work Medications betamethasone topical dipropionate 0.05% cream 1 application, Topically, 2 times a day, # 45 Gm, 0 Refills, Maintenance, 06/11/19 15:36:00 EDT, Cream, [facility], 1 application Topically 2 [...] Refills, Maintenance, 12/21/19 8:19:00 EDT, EC Tablet, [facility], 162, cm, 12/21/19 8:09:00 EDT, Height Start Date: 12/21/19 Status: Ordered Singulair 10 mg oral tablet 10 mg, 1, tablet, By Mouth, Daily, # 30 tablet, Refills 0, Tot. Refills 0, Maintenance, 05/31/18 16:17:26 EDT, Route to Pharmacy Electronically, [id number], [facility] - Start Date: 05/31/18 Stop Date: 06/30/18 Status: Ordered Problem List Condition Effective Dates Status Health Status Inform ant Allergic rhinitis(Confirmed) Active Chronic headaches(Confirmed) Active Chronic GERD(Confirmed) Active Sleep apnea(Confirmed) Active Social History Social History Type Response Smoking Status Never (less than 100 in lifetime) entered on: 10/19/18 Sex
--- OUTSIDE RECORDS SUMMARY | 2023-07-21 14:25 | XMS_ITS | Continuity of Care Document ---
Author Organization [facility] Adult Address [address] [place] [address]- Care Team Providers Care Weapons Electrical Engineering Officer Name Role Phone Pierre MCLEOD, Flora Núñez Primary Care Physician Encounter [facility] [place] Date(s): 08/28/20 - 09/04/[address] [address] Encounter Diagnosis Dizziness(Discharge Diagnosis) - 08/31/20 Attending Physician: Kayy Vicente MD Allergies, Adverse Reactions, Alerts Substance Reaction Severity Status NKA Active Immunizations Given and Recorded Vaccine Date Status Refusal Reason SARS-CoV-2 (COVID-19) mRNA-1273 vaccine 04/04/20 R ecorded SARS-CoV-2 (COVID-19) mRNA-1273 vaccine 03/04/20 R ecorded tetanus/diphtheria/pertussis, acel(Tdap) 1 04/05/19 Given Influenza Virus Vaccine (oldterm) 2 12/08/18 Recor ded 1Result Comment: [facility] [id number] 2Result Comment: work Medications betamethasone topical dipropionate [...] Refills, Maintenance, 12/21/19 8:19:00 EDT, EC Tablet, [facility], 162, cm, 12/21/19 8:09:00 EDT, Height Start Date: 12/21/19 Status: Ordered Singulair 10 mg oral tablet 10 mg, 1, tablet, By Mouth, Daily, # 30 tablet, Refills 0, Tot. Refills 0, Maintenance, 05/31/18 16:17:26 EDT, Route to Pharmacy Electronically, [id number], [facility] [place] Start Date: 05/31/18 Stop Date: 06/30/18 Status: Ordered Problem List Condition Effective Dates Status Health Status Inform ant Allergic rhinitis(Confirmed) Active Chronic headaches(Confirmed) Active Chronic GERD(Confirmed) Active Sleep apnea(Confirmed) Active Diagnosis Diagnosis Type Effective Dates Health Status Clini tyler Service Informant Dizziness Discharge Diagnosis 08/31/20 Vital Signs Most recent to oldest [Reference Range]: 1 Height 162 cm (08/28/20 9:18 AM) Weight 100 kg (08/28/20 9:18 AM) Body Mass Index [18.5-24.99] 38.1 *>HHI* (08/28/20 9:18 AM) Weight Obtained Via Patient/family state d (08/28/20 9:18 AM) Social History Social History Type Response Smoking Status Never (less than 100 in lifetime) entered on: 10/19/18 Sex
--- OUTSIDE RECORDS SUMMARY | 2023-07-21 14:25 | XMS_ITS | Continuity of Care Document ---
Author Organization [facility] Address [address] [facility], [address] Floor, [address] [place] [address]- Care Team Providers Care Bar Back Name Role Phone Pierer PV DESIGN AND INSTALLATION TECHNICIAN, Flora Núñez Primary Care Physician Encounter [facility] [place] Date(s): 01/25/19 - 03/15/19 [facility] [address], [address], [address] [place] [address] [facility] Attending Physician: Mamie Maurice MD Admitting Physician: Mamie Maurice MD Referring Physician: Chaz Govea MD Allergies, Adverse Reactions, Alerts Substance Reaction [...] 05/31/18 16:17:26 EDT, Route to Pharmacy Electronically, [id number], [facility] - Start Date: 05/31/18 Stop Date: 06/30/18 Status: Ordered Problem List Condition Effective Dates Status Health Status Inform ant Allergic rhinitis(Confirmed) Active Chronic headaches(Confirmed) Active Chronic GERD(Confirmed) Active Sleep apnea(Confirmed) Active Social History Social History Type Response Smoking Status Never (less than 100 in lifetime) entered on: 10/19/18 Sex
--- OUTSIDE RECORDS SUMMARY | 2023-07-21 14:25 | XMS_ITS | Continuity of Care Document ---
Author Organization [facility] Adult Address [address] [place] [address]- Care Team Providers Care Rope Maker Name Role Phone Pierre MCLEOD, Flora Núñez Primary Care Physician [place] [facility] [place](s): 12/21/19 - 12/28/19 [facility] Adult [address] [place] [address] [facility] Encounter Diagnosis Chronic GERD(Discharge Diagnosis) - 12/21/19 Attending Physician: Flora Jay NP Referring Physician: Desi Kaiser MD Allergies, Adverse Reactions, Alerts Substance Reaction Severity Status NKA Active Immunizations Given and Recorded Vaccine Date Status Refusal Reason tetanus/diphtheria/pertussis, acel(Tdap) 1 04/05/19 Given Influenza Virus Vaccine (oldterm) 2 12/08/18 Recor ded 1Result Comment: [facility] [id number] 2Result Comment: work Medications betamethasone topical dipropionate 0.05% cream 1 application, Topically, 2 times a day, # 45 Gm, 0 Refills, Maintenance, 06/11/19 15:36:00 EDT, Cream, [facility], 1 application Topically 2 times a [...] 05/31/18 16:17:26 EDT, Route to Pharmacy Electronically, [id number], [facility] [place] Start Date: 05/31/18 Stop Date: 06/30/18 Status: Ordered Problem List Condition Effective Dates Status Health Status Inform ant Allergic rhinitis(Confirmed) Active Chronic headaches(Confirmed) Active Chronic GERD(Confirmed) Active Sleep apnea(Confirmed) Active Diagnosis Diagnosis Type Effective Dates Health Status Cl inical Service Informant Chronic GERD Discharge Diagnosis 12/21/19 Vital Signs Most recent to oldest [Reference Range]: 1 2 Height 162 cm (12/21/19 8:24 AM) 162 cm (12/21/19 8:09 AM) Weight 101.2 kg (12/21/19 8:09 AM) Oxygen Saturation [94-100 %] 97 % (12/21/19 8:09 AM) Pulse Rate [55-90 bpm] 95 bpm *H* (12/21/19 8:09 AM) Body Mass Index [18.5-24.99] 38.56 *>HHI* (12/21/19 8:09 AM) Blood Pressure [90-138/55-84 mm Hg] 108/ 72mm Hg (12/21/19 8:24 AM) 120/78mm Hg (12/21/19 8:09 AM) Mode of Delivery (Oxygen) Room air (12/21/19 8:09 AM) Blood pressure sites Arm, left (12/21/19 8:24 AM) Arm, left (12/21/19 8:09 AM) Weight Obtained Via Standing scale (12/21/19 8:09 AM) Social History Social History Type Response Smoking Status Never (less than 100 in lifetime) entered on: 10/19/18 Sex
--- OUTSIDE RECORDS SUMMARY | 2023-07-21 14:25 | XMS_ITS | Continuity of Care Document ---
Author Organization [facility] Adult Address [address] [place] [address]- Care Team Providers Care Medical Record Assistant Name Role Phone Pierre MCLEOD, Flora Núñez Primary Care Physician En[place] [facility] [place] Date(s[place] 04/25/19 - 05/02/19 [facility] Adult [address] [place] [address] [facility] Encounter Diagnosis Swollen face(Discharge Diagnosis) - 04/25/19 Attending Physician: Flora Jay NP Allergies, Adverse Reactions, Alerts Substance Reaction Severity Status NKA Active Immunizations Given and Recorded Vaccine Date Status Refusal Reason tetanus/diphtheria/pertussis, acel(Tdap) 1 04/05/19 Given Influenza Virus Vaccine (oldterm) 2 12/08/18 Recor ded 1Result Comment: [facility] [id number] 2Result Comment: work Medications CPAP Machine See [...] 05/31/18 16:17:26 EDT, Route to Pharmacy Electronically, [id number], [facility] - Start Date: 05/31/18 Stop Date: 06/30/18 Status: Ordered Problem List Condition Effective Dates Status Health Status Inform ant Allergic rhinitis(Confirmed) Active Chronic headaches(Confirmed) Active Chronic GERD(Confirmed) Active Sleep apnea(Confirmed) Active Diagnosis Diagnosis Type Effective Dates Health Status Cl inical Service Informant Swollen face Discharge Diagnosis 04/25/19 Vital Signs Most recent to oldest [Reference Range]: 1 2 Height 162 cm (04/25/19 9:34 AM) 162 cm (04/25/19 9:18 AM) Weight 103.5 kg (04/25/19 9:18 AM) Oxygen Saturation [94-100 %] 98 % (04/25/19 9:18 AM) Pulse Rate [55-90 bpm] 97 bpm *H* (04/25/19 9:18 AM) Body Mass Index [18.5-24.99] 39.44 *>HHI* (04/25/19 9:18 AM) Blood Pressure [90-138/55-84 mm Hg] 98/6 2mm Hg (04/25/19 9:34 AM) 98/62mm Hg (04/25/19 9:18 AM) Respiratory Rate [16-30 br/min] 18 br/mi n (04/25/19 9:18 AM) Temperature [96.8-100.4 DegF] 98.2 DegF (04/25/19 9:18 AM) Mode of Delivery (Oxygen) Room air (04/25/19 9:18 AM) Blood pressure sites Arm, left (04/25/19 9:34 AM) Arm, left (04/25/19 9:18 AM) Temperature Route Oral (04/25/19 9:18 AM) Weight Obtained Via Standing scale (04/25/19 9:18 AM) Social History Social History Type Response Smoking Status Never (less than 100 in lifetime) entered on: 10/19/18 Sex
--- OUTSIDE RECORDS SUMMARY | 2023-07-21 14:25 | XMS_ITS | Continuity of Care Document ---
Author Organization [facility] Adult Address [address] [place] [phone]- Care Team Providers Care V Belt Finisher Name Role Phone Pierre MCLEOD, Flora Núñez Primary Care Physician Encounter [facility] [place] [place] Date(s): 09/04/20 - 10/04/[address] [facility] Adult [address] [place] [address]- Allergies, Adverse Reactions, Alerts Substance Reaction Severity Status NKA Active Immunizations Given and Recorded Vaccine Date Status Refusal Reason SARS-CoV-2 (COVID-19) mRNA-1273 vaccine 04/04/20 R ecorded SARS-CoV-2 (COVID-19) mRNA-1273 vaccine 03/04/20 R ecorded tetanus/diphtheria/pertussis, acel(Tdap) 1 04/05/19 Given Influenza Virus Vaccine (oldterm) 2 12/08/18 Recor ded 1Result Comment: [facility] [phone] 2Result Comment: work Medications betamethasone topical dipropionate 0.05% cream 1 application, Topically, 2 times a day, # 45 Gm, 0 Refills, Maintenance, 06/11/19 15:36:00 EDT, Cream, [facility], 1 application Topically 2 times [...] Refills, Maintenance, 12/21/19 8:19:00 EDT, EC Tablet, [facility], 162, cm, 12/21/19 8:09:00 EDT, Height Start Date: 12/21/19 Status: Ordered Singulair 10 mg oral tablet 10 mg, 1, tablet, By Mouth, Daily, # 30 tablet, Refills 0, Tot. Refills 0, Maintenance, 05/31/18 16:17:26 EDT, Route to Pharmacy Electronically, [id number], [facility] - Start Date: 05/31/18 Stop Date: 06/30/18 Status: Ordered Problem List Condition Effective Dates Status Health Status Inform ant Allergic rhinitis(Confirmed) Active Chronic headaches(Confirmed) Active Chronic GERD(Confirmed) Active Sleep apnea(Confirmed) Active Social History Social History Type Response Smoking Status Never (less than 100 in lifetime) entered on: 10/19/18 Sex
--- OUTSIDE RECORDS SUMMARY | 2023-07-21 14:25 | XMS_ITS | Continuity of Care Document ---
Author Organization [facility] Adult Address [address] [place] [address]- Care Team Providers Care Ham Stripper Name Role Phone Pierre MCLEOD, Flora Núñez Primary Care Physician Encounter [facility] [place] Date(s): 08/28/20 - 09/27/20 [facility] Adult [address] [place] [phone]- Allergies, Adverse Reactions, Alerts Substance Reaction Severity Status NKA Active Immunizations Given and Recorded Vaccine Date Status Refusal Reason SARS-CoV-2 (COVID-19) mRNA-1273 vaccine 04/04/20 R ecorded SARS-CoV-2 (COVID-19) mRNA-1273 vaccine 03/04/20 R ecorded tetanus/diphtheria/pertussis, acel(Tdap) 1 04/05/19 Given Influenza Virus Vaccine (oldterm) 2 12/08/18 Recor ded 1Result Comment: [facility] [id number] 2Result Comment: work Medications betamethasone topical dipropionate 0.05% cream 1 application, Topically, 2 times a day, # 45 Gm, 0 Refills, Maintenance, 06/11/19 15:36:00 EDT, Cream, [facility], 1 application Topically 2 times [...] Refills, Maintenance, 12/21/19 8:19:00 EDT, EC Tablet, [facility], 162, cm, 12/21/19 8:09:00 EDT, Height Start Date: 12/21/19 Status: Ordered Singulair 10 mg oral tablet 10 mg, 1, tablet, By Mouth, Daily, # 30 tablet, Refills 0, Tot. Refills 0, Maintenance, 05/31/18 16:17:26 EDT, Route to Pharmacy Electronically, [id number], [facility] [place] Start Date: 05/31/18 Stop Date: 06/30/18 Status: Ordered Problem List Condition Effective Dates Status Health Status Inform ant Allergic rhinitis(Confirmed) Active Chronic headaches(Confirmed) Active Chronic GERD(Confirmed) Active Sleep apnea(Confirmed) Active Social History Social History Type Response Smoking Status Never (less than 100 in lifetime) entered on: 10/19/18 Sex
--- OUTSIDE RECORDS SUMMARY | 2023-07-21 14:25 | XMS_ITS | Continuity of Care Document ---
Author Organization [facility] Adult Address [address] [place] [phone]- Care Team Providers Care Library Aide Name Role Phone Flora Jay NP Primary Care Physician [place] [facility] [place]11[place] 06/21/19 [facility] Adult [address] [place] [address]- [facility] Attending Physician: AdmCynthia kincaid Admitting Physician: [id number] Referring Physician: Admtr, Ar8 Allergies, Adverse Reactions, Alerts Substance Reaction Severity Status NKA Active Immunizations Given and Recorded Vaccine Date Status Refusal Reason tetanus/diphtheria/pertussis, acel(Tdap) 1 04/05/19 Given Influenza Virus Vaccine (oldterm) 2 12/08/18 Recor ded 1Result Comment: [facility] [phone] 2Result Comment: work Medications betamethasone topical dipropionate 0.05% cream 1 application, Topically, 2 times a day, # 45 Gm, 0 Refills, Maintenance, 06/11/19 15:36:00 EDT, Cream, [facility], 1 application Topically 2 times [...] 05/31/18 16:17:26 EDT, Route to Pharmacy Electronically, [id number], [facility] - Start Date: 05/31/18 Stop Date: 06/30/18 Status: Ordered Problem List Condition Effective Dates Status Health Status Inform ant Allergic rhinitis(Confirmed) Active Chronic headaches(Confirmed) Active Chronic GERD(Confirmed) Active Sleep apnea(Confirmed) Active Social History Social History Type Response Smoking Status Never (less than 100 in lifetime) entered on: 10/19/18 Sex
--- OUTSIDE RECORDS SUMMARY | 2023-07-21 14:25 | XMS_ITS | Continuity of Care Document ---
Author Organization [facility] Adult Address [address] [place] [address]- Care Team Providers Care Sas Developer Analyst Name Role Phone Pierre POULTRY SCALDER, Flora Núñez Primary Care Physician En[place] [facility] [place] Date(s): 06/18/21 - 07/18/21 [facility] Adult [address] [place] [address]- Attending Physician: Cynthia Waters Admitting Physician: Admtr, Ar8 Referring Physician: Admtr, Ar8 Allergies, Adverse Reactions, Alerts No Known Allergies Immunizations Given and Recorded Vaccine Date Status Refusal Reason influenza virus vaccine, inactivated 1 12/29/20 Gi markie SARS-CoV-2 (COVID-19) mRNA-1273 vaccine 04/04/20 R ecorded SARS-CoV-2 (COVID-19) mRNA-1273 vaccine 03/04/20 R ecorded tetanus/diphtheria/pertussis, acel(Tdap) 2 04/05/19 Given Influenza Virus Vaccine (oldterm) 3 12/08/18 Recor ded 1Result Comment: [facility]# [id number] 2Result Comment: [facility] [id number] 3Result Comment: work Medications CPAP Machine See [...] 06/18/21 14:50:00 EDT, Route to Pharmacy Electronically, [facility], Partial fill upon patient request if the prescription is for... Start Date: 06/18/21 Stop Date: 07/18/21 Status: Ordered omeprazole 20 mg oral delayed release tablet 1 tablet = 20 mg, By Mouth, Daily, # 30 tablet, 0 Refills, Maintenance, 06/18/21 14:53:00 EDT, CR Tablet, [facility], Partial fill upon patient request if [...]
--- OUTSIDE RECORDS SUMMARY | 2023-07-21 14:25 | XMS_ITS | Continuity of Care Document ---
Author Organization [facility] Adult Address [address] [place] [address]- Care Team Providers Care Bale Coverer Name Role Phone Flora Jay NP Primary Care Physician [place] [facility] [place] - 01/05/[address] [address]- Encounter Diagnosis Physical exam(Discharge Diagnosis) - 12/29/20 Allergic rhinitis(Discharge Diagnosis) - 12/29/20 Chronic GERD(Discharge Diagnosis) - 12/29/20 Chronic headaches(Discharge Diagnosis) - 12/29/20 Sleep apnea(Discharge Diagnosis) - 12/29/20 Attending Physician: Flora Jay NP Allergies, Adverse Reactions, Alerts Substance Reaction Severity Status NKA Active Immunizations Given and Recorded Vaccine Date Status Refusal Reason influenza virus vaccine, inactivated 1 12/29/20 Gi markie SARS-CoV-2 (COVID-19) mRNA-1273 vaccine 04/04/20 R ecorded SARS-CoV-2 (COVID-19) mRNA-1273 vaccine 03/04/20 R ecorded tetanus/diphtheria/pertussis, acel(Tdap) 2 04/05/19 Given Influenza Virus Vaccine (oldterm) 3 12/08/18 Recor ded 1Result Comment: [facility]# [id number] 2Result Comment: [facility] [id number] 3Result Comment: work Medications CPAP Machine See Instructions, # 1 each, Maintenance, patient should be started on AutoCpap 8-20cm H20 with compliance data followed. 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 Refills 11, Maintenance, Mask,tubing, filters, head gear, chin strap, wther chamber. use nightly for lifetime with compressor. 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, 03/02/18 10:45:04 EST, Compound Start Date: 03/02/18 Status: Ordered Problem List Condition Effective Dates Status Health Status Inform ant Allergic rhinitis(Confirmed) Active Chronic headaches(Confirmed) Active Chronic GERD(Confirmed) Active Sleep apnea(Confirmed) Active Diagnosis Diagnosis Type Effective Dates Health Status Cl inical Service Informant Physical exam Discharge Diagnosis 12/29/20 Allergic rhinitis Discharge Diagnosis 12/29/20 Chronic GERD Discharge Diagnosis 12/29/20 Chronic headaches Discharge Diagnosis 12/29/20 Sleep apnea Discharge Diagnosis 12/29/20 Vital Signs Most recent to oldest [Reference Range]: 1 2 Height 162 cm (12/29/20 3:54 PM) 162 cm (12/29/20 3:24 PM) Weight 105.3 kg (12/29/20 3:24 PM) Oxygen Saturation [94-100 %] 100 % (12/29/20 3:24 PM) Pulse Rate [55-90 bpm] 78 bpm (12/29/20 3:24 PM) Body Mass Index [18.5-24.99] 40.12 *>HHI* (12/29/20 3:24 PM) Blood Pressure [90-138/55-84 mm Hg] 118/ 68mm Hg (12/29/20 3:54 PM) 115/66mm Hg (12/29/20 3:24 PM) Mode of Delivery (Oxygen) Room air (12/29/20 3:24 PM) Blood pressure sites Arm, left (12/29/20 3:54 PM) Arm, left (12/29/20 3:24 PM) Weight Obtained Via Standing scale (12/29/20 3:24 PM) Social History Social History Type Response Smoking Status Never (less than 100 in lifetime) entered on: 10/19/18 Sex
--- OUTSIDE RECORDS SUMMARY | 2023-07-21 14:25 | XMS_ITS | Continuity of Care Document ---
Author Organization [facility] Address [address] [place] [address]- Care Team Providers Care Hull Drafter Name Role Phone Pierre MCLEOD, Flora Núñez Primary Care Physician [place] [facility] [place](s): 07/29/21 - 02/15/23 [facility] [address] [place] [address]- Discharge Disposition: A-D/C Home Attending Physician: Nila Herr MD Admitting Physician: Nila Herr MD Referring Physician: Flora Jay NP Allergies, Adverse Reactions, Alerts No Known Allergies Immunizations Given and Recorded Vaccine Date Status Refusal Reason influenza virus vaccine, inactivated 1 12/29/20 Gi markie SARS-CoV-2 (COVID-19) mRNA-1273 vaccine 04/04/20 R ecorded SARS-CoV-2 (COVID-19) mRNA-1273 vaccine 03/04/20 R ecorded tetanus/diphtheria/pertussis, acel(Tdap) 2 04/05/19 Given Influenza Virus Vaccine (oldterm) 3 12/08/18 Recor ded 1Result Comment: [facility]# [id number] 2Result Comment: [facility] [phone] 3Result Comment: work Medications CPAP Machine See [...] Refills, Maintenance, 10/29/21 14:00:00 EDT, Cream, [facility], Partial fill upon patient request if [...] 01/04/22 15:53:00 EDT, Route to Pharmacy Electronically, [facility], Partial fill upon patient request if the prescription is for... Start Date: 01/04/22 Stop Date: 05/04/22 Status: Ordered loratadine 10 mg oral tablet 10 mg, 1, tablet, By Mouth, Daily, # 30 tablet, Refills 0, Tot. Refills 0, Maintenance, 10/29/21 14:03:00 EDT, Route to Pharmacy Electronically, [facility], Partial fill upon patient request if the prescription is for a schedule II opioid drCristiano Start Date: 10/29/21 Stop Date: 11/28/21 Status: Ordered NuLYTELY with Flavor Packs oral powder for reconstitution See Instructions, split prep method. drink one half the night before procedure at 5pm. drink secondhalf six hours prior to procedure., # 4,000 mL, 0 Refills, Maintenance, 08/26/22 17:00:00 EDT, [facility], test date, split prep method. pierre Start Date: 08/26/22 Status: Ordered omeprazole 20 mg oral delayed release tablet 1 tablet = 20 mg, By Mouth, Daily, # 30 tablet, 0 Refills, Maintenance, 06/18/21 14:53:00 EDT, CR Tablet, [facility], Partial fill upon patient request if [...] Associate Professional Member Role: PCP Address: Address: [address] [place] [address] [address] [place] [address]- Care Team Related Persons Name: BETH LOZA Address: home [address] [place] [address] Name: CAROL LOZA Address: [address] [place] [address] Name: MARTHA LOO Address: [address] [address]
--- OUTSIDE RECORDS SUMMARY | 2023-07-21 14:25 | XMS_ITS | Continuity of Care Document ---
Author Organization [facility] Adult Address [address] [place] [address]- Care Team Providers Care Hockey Scout Name Role Phone Flora Jay NP Primary Care Physician [place] [facility] [place]20 [facility] Adult [address] [place] [address]- Encounter Diagnosis Routine physical examination(Discharge Diagnosis) - 02/11/20 Allergic rhinitis(Discharge Diagnosis) - 02/11/20 Chronic GERD(Discharge Diagnosis) - 02/11/20 Chronic headaches(Discharge Diagnosis) - 02/11/20 Sleep apnea(Discharge Diagnosis) - 02/11/20 Attending Physician: Flora Jay NP Allergies, Adverse Reactions, Alerts Substance Reaction Severity Status NKA Active Immunizations Given and Recorded Vaccine Date Status Refusal Reason tetanus/diphtheria/pertussis, acel(Tdap) 1 04/05/19 Given Influenza Virus Vaccine (oldterm) 2 12/08/18 Recor ded 1Result Comment: [facility] [id number] 2Result Comment: work Medications betamethasone topical dipropionate 0.05% cream 1 application, Topically, 2 times a day, # 45 Gm, 0 Refills, Maintenance, 06/11/19 15:36:00 EDT, Cream, [facility], 1 application Topically 2 times a day, 162, cm, 04/25/19 9:34:00 EST, Height Start Date: 06/11/19 Status: Ordered CPAP Machine See Instructions, # 1 each, Maintenance, patient should be started on AutoCpap 8-20cm H20 with compliance data followed. 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 Refills 0, Maintenance, 05/31/18 16:17:26 EDT, Route to Pharmacy Electronically, [id number], [facility] - Start Date: 05/31/18 Stop Date: 06/30/18 Status: Ordered Problem List Condition Effective Dates Status Health Status Inform ant Allergic rhinitis(Confirmed) Active Chronic headaches(Confirmed) Active Chronic GERD(Confirmed) Active Sleep apnea(Confirmed) Active Diagnosis Diagnosis Type Effective Dates Health Status Clinical Service Informant Routine physical examination Discharge Diagnosis 02/11/20 Allergic rhinitis Discharge Diagnosis 02/11/20 Chronic GERD Discharge Diagnosis 02/11/20 Chronic headaches Discharge Diagnosis 02/11/20 Sleep apnea Discharge Diagnosis 02/11/20 Social History Social History Type Response Smoking Status Never (less than 100 in lifetime) entered on: 10/19/18 Sex
--- OUTSIDE RECORDS SUMMARY | 2023-07-21 14:25 | XMS_ITS | Continuity of Care Document ---
Author Organization [facility] Adult Address [address] [place] [address]- Care Team Providers Care Clay Thrower Name Role Phone Pierre MCLEOD, Flora Núñez Primary Care Physician [place] [facility] [place]12/19 [facility] Adult [address] [place] [address]- [facility] Encounter Diagnosis Sleep apnea(Discharge Diagnosis) - 02/05/19 Chronic headaches(Discharge Diagnosis) - 02/05/19 Physical exam(Discharge Diagnosis) - 02/05/19 Chronic GERD(Discharge Diagnosis) - 02/05/19 Allergic rhinitis(Discharge Diagnosis) - 02/05/19 Attending Physician: Flora Jay NP Allergies, Adverse [...] 02/05/19 10:07:02 EST, Route to Pharmacy Electronically, [id number], [facility]... Start Date: 02/05/19 Stop Date: [...] 05/31/18 16:17:26 EDT, Route to Pharmacy Electronically, [id number], [facility] - Start Date: 05/31/18 Stop Date: 06/30/18 Status: Ordered Problem List Condition Effective Dates Status Health Status Inform ant Allergic rhinitis(Confirmed) Active Chronic headaches(Confirmed) Active Chronic GERD(Confirmed) Active Sleep apnea(Confirmed) Active Diagnosis Diagnosis Type Effective Dates Health Status Cl inical Service Informant Sleep apnea Discharge Diagnosis 02/05/19 Chronic headaches Discharge Diagnosis 02/05/19 Physical exam Discharge Diagnosis 02/05/19 Chronic GERD Discharge Diagnosis 02/05/19 Allergic rhinitis Discharge Diagnosis 02/05/19 Vital Signs Most recent to oldest [Reference Range]: 1 Height 162 cm (02/05/19 9:37 AM) Weight 106.5 kg (02/05/19 9:37 AM) Oxygen Saturation [94-100 %] 98 % (02/05/19 9:37 AM) Pulse Rate [55-90 bpm] 107 bpm *H* (02/05/19 9:37 AM) Body Mass Index [18.5-24.99] 40.58 *>HHI* (02/05/19 9:37 AM) Blood Pressure [90-138/55-84 mm Hg] 110/ 82mm Hg (02/05/19 9:37 AM) Temperature [96.8-100.4 DegF] 99 DegF (02/05/19 9:37 AM) Mode of Delivery (Oxygen) Room air (02/05/19 9:37 AM) Blood pressure sites Arm, left (02/05/19 9:37 AM) Temperature Route Oral (02/05/19 9:37 AM) Weight Obtained Via Standing scale (02/05/19 9:37 AM) Social History Social History Type Response Smoking Status Never (less than 100 in lifetime) entered on: 10/19/18 Sex
--- OUTSIDE RECORDS SUMMARY | 2023-07-21 14:25 | XMS_ITS | Continuity of Care Document ---
Author Organization [facility] Adult Address [address] [place] [address]- Care Team Providers Care Marker Machine Attendant Name Role Phone Pierre MCLEOD, Flora Núñez Primary Care Physician [place] [facility] [place] 04/05/19 - 04/15/19 [facility] Adult [address] [place] [address] [facility] Attending Physician: Cynthia Waters Admitting Physician: AdmtrCynthia Referring Physician: Admtr, Ar8 Allergies, Adverse Reactions, Alerts Substance Reaction Severity Status NKA Active Immunizations Given and Recorded Vaccine Date Status Refusal Reason tetanus/diphtheria/pertussis, acel(Tdap) 1 04/05/19 Given Influenza Virus Vaccine (oldterm) 2 12/08/18 Recor ded 1Result Comment: [facility] [id number] 2Result Comment: work Medications CPAP Machine See [...] 05/31/18 16:17:26 EDT, Route to Pharmacy Electronically, [id number], [facility] [place] Start Date: 05/31/18 Stop Date: 06/30/18 Status: Ordered Problem List Condition Effective Dates Status Health Status Inform ant Allergic rhinitis(Confirmed) Active Chronic headaches(Confirmed) Active Chronic GERD(Confirmed) Active Sleep apnea(Confirmed) Active Social History Social History Type Response Smoking Status Never (less than 100 in lifetime) entered on: 10/19/18 Sex
--- OUTSIDE RECORDS SUMMARY | 2023-07-21 14:26 | XMS_ITS | Continuity of Care Document ---
Author Organization [facility] Address [address] [place] [address]- Care Team Providers Care Medical Translator Name Role Phone Pierre MCLEOD, Flora Núñez Primary Care Physician [place] [facility] [place] 07/29/21 - 08/28/21 [facility] [address] [place] [address] Attending Physician: AdmtrCynthia Admitting Physician: AdmtrCynthia Referring Physician: Admtr, Ar8 Allergies, Adverse Reactions, Alerts No Known Allergies Immunizations Given and Recorded Vaccine Date Status Refusal Reason influenza virus vaccine, inactivated 1 12/29/20 Gi markie SARS-CoV-2 (COVID-19) mRNA-1273 vaccine 04/04/20 R ecorded SARS-CoV-2 (COVID-19) mRNA-1273 vaccine 03/04/20 R ecorded tetanus/diphtheria/pertussis, acel(Tdap) 2 04/05/19 Given Influenza Virus Vaccine (oldterm) 3 12/08/18 Recor ded 1Result Comment: [facility]# [id number] 2Result Comment: [facility] [id number] 3Result Comment: work Medications CPAP Machine See [...] 14:50:00 EDT, Route to Pharmacy Electronically, [facility], Partial fill upon patient request if the prescription is for... Start Date: 06/18/21 Stop Date: 07/18/21 Status: Ordered omeprazole 20 mg oral delayed release tablet 1 tablet = 20 mg, By Mouth, Daily, # 30 tablet, 0 Refills, Maintenance, 06/18/21 14:53:00 EDT, CR Tablet, [facility], Partial fill upon patient request if the [...]
--- OUTSIDE RECORDS SUMMARY | 2023-07-21 14:26 | XMS_ITS | Continuity of Care Document ---
Author Organization [facility] Adult Address [address] [place] [address]- Care Team Providers Care Tour Leader Name Role Phone Flora Jay NP Primary Care Physician Encounter [facility] Date(s): 01/04/22 - 01/11/22 [facility] [address] [place] [phone]- Encounter Diagnosis Physical exam(Discharge Diagnosis) - 01/04/22 Allergic rhinitis(Discharge Diagnosis) - 01/04/22 Chronic GERD(Discharge Diagnosis) - 01/04/22 Chronic headaches(Discharge Diagnosis) - 01/04/22 Severe obesity(Discharge Diagnosis) - 01/04/22 Sleep apnea(Discharge Diagnosis) - 01/04/22 Attending Physician: Floar Jay NP Allergies, Adverse Reactions, Alerts No Known Allergies Immunizations Given and Recorded Vaccine Date Status Refusal Reason influenza virus vaccine, inactivated 1 12/29/20 Gi markie SARS-CoV-2 (COVID-19) mRNA-1273 vaccine 04/04/20 R ecorded SARS-CoV-2 (COVID-19) mRNA-1273 vaccine 03/04/20 R ecorded tetanus/diphtheria/pertussis, acel(Tdap) 2 04/05/19 Given Influenza Virus Vaccine (oldterm) 3 12/08/18 Recor ded 1Result Comment: [facility]# [id number] 2Result Comment: [facility] [id number] 3Result Comment: work Medications CPAP Machine See [...] 1 Refills, Maintenance, 10/29/21 14:00:00 EDT, Cream, [facility], Partial fill upon patient request if the [...] 01/04/22 15:53:00 EDT, Route to Pharmacy Electronically, [facility], Partial fill upon patient request if the prescription is for... Start Date: 01/04/22 Stop Date: 05/04/22 Status: Ordered loratadine 10 mg oral tablet 10 mg, 1, tablet, By Mouth, Daily, # 30 tablet, Refills 0, Tot. Refills 0, Maintenance, 10/29/21 14:03:00 EDT, Route to Pharmacy Electronically, [facility], Partial fill upon patient request if the prescription is for a schedule II opioid drCristiano Start Date: 10/29/21 Stop Date: 11/28/21 Status: Ordered omeprazole 20 mg oral delayed release tablet 1 tablet = 20 mg, By Mouth, Daily, # 30 tablet, 0 Refills, Maintenance, 06/18/21 14:53:00 EDT, CR Tablet, [facility], Partial fill upon patient request if the prescription is for a scheduleII opioid drug., 162, cm, 06/18/21 14:35:00 EDT, He... Start Date: 06/18/21 Status: Ordered Problem List Condition Confirmation Course Effective Dates Status Health St atus Informant Allergic rhinitis Confirmed Active Chronic headaches Confirmed Active Chronic GERD Confirmed Active Severe obesity Confirmed Active Sleep apnea Confirmed Active Diagnosis Diagnosis Type Effective Dates Health Status inical Service Informant Physical exam Discharge Diagnosis 01/04/22 Allergic rhinitis Discharge Diagnosis 01/04/22 Chronic GERD Discharge Diagnosis 01/04/22 Chronic headaches Discharge Diagnosis 01/04/22 Severe obesity Discharge Diagnosis 01/04/22 Sleep apnea Discharge Diagnosis 01/04/22 Vital Signs Most recent to oldest [Reference Range]: 1 2 Height 162 cm (01/04/22 4:04 PM) 162 cm (01/04/22 3:39 PM) Weight 107.4 kg (01/04/22 3:39 PM) Oxygen Saturation [94-100 %] 99 % (01/04/22 3:39 PM) Pulse Rate [55-90 bpm] 81 bpm (01/04/22 3:39 PM) Body Mass Index [18.5-24.99 kg/m2] 40.92 kg/m2 *>HHI* (01/04/22 3:39 PM) Blood Pressure [90-138/55-84 mm Hg] 118/ 70mm Hg (01/04/22 4:04 PM) 110/72mm Hg (01/04/22 3:39 PM) Temperature [96.8-100.4 DegF] 97.8 DegF (01/04/22 3:39 PM) Mode of Delivery (Oxygen) Room air (01/04/22 3:39 PM) Blood pressure sites Arm, left (01/04/22 4:04 PM) Arm, right (01/04/22 3:39 PM) Temperature Route Temporal (01/04/22 3:39 PM) Weight Obtained Via Standing scale (01/04/22 3:39 PM) Social History Social History Type Response Smoking Status Never (less than 100 in lifetime) entered on: 10/19/18 Sex Note * Liz Kat: PERFORM, SIGN, VERIFY Event Display: Patient Education/Instruction Authored Date: [id number] [facility] *[facility] Clinical Summary Name SCARLETT ESTEVES Age 46 Years 1975 PCP Pierre MCLEOD, Flora Núñez PCP Visit Date 01/04/2022 15:32:00 Additional Instructions: Scheduled Appointments?? Future Appointments ?No Future Appointments Scheduled Follow-Up Instructions ?? Diagnosis Morbid (severe) obesity due to excess calories; Encounter for general adult medical examination without abnormal findings; Gastro-esophageal reflux disease without esophagitis; Sleep apnea, unspecified; Allergic rhinitis, unspecified; Headache Medications: Please continue your medications until treatment is completed or stopped by your provider. Discuss any questions related to medications with your provider. Medications to Continue with No Changes [facility], [address] [place] [id number], [phone] Ibuprofen (ibuprofen 800 mg oral tablet) 1 tab(s) Oral 3 times a day as needed for pain for 30 Days. Refills: 3. Next Dose: These medications were not printed or sent to your pharmacy Durable Medical Equipment (CPAP Machine) patient should be started on AutoCpap 8-20cm H20 with compliance data followed. use nightly for lifetime dx ktahleen G47.33. Refills: 0. Next Dose: Durable Medical Equipment (CPAP Equipment) Mask,tubing, filters, head gear, chin strap, wther chamber. use nightly for lifetime with compressor. 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. Refills: 11. Next Dose: Hydrocortisone Topical (hydrocortisone 2.5% topical cream) 1 jeramy Topically 3 times a day for 30 Days. Refills: 1. Next Dose: Loratadine (loratadine 10 mg oral tablet) 1 tab(s) Oral Daily for 30 Days. Refills: 0. Next Dose: Omeprazole (omeprazole 20 mg oral delayed release tablet) 1 tab(s) Oral Daily. Refills: 0. Next Dose: Allergy Info:?? NKA Medications Given This Visit Future Orders ?MM Digital Mammo Screening? Order Date:01/04/22?- Complete on or after?01/04/22 ?Basic Metabolic Panel? Order Date:01/04/22?- Complete on or after?01/04/22 ?CBC w/ Differential? Order Date:01/04/22?- Complete on or after?01/04/22 ?TSH with T4 Reflex (Adults Only)? Order Date:01/04/22?- Complete on or after?01/04/22 ?Lipid Panel? Order Date:01/04/22?- Complete on or after?01/04/22 ?Complete Urinalysis/Reflex Culture? Order Date:01/04/22?- Complete on or after?01/04/22 Vital Signs Height 162 cm Weight 107.4 kg BMI 40.92 kg/m2 Blood Pressure 118 mm Hg/70 mm Hg Temperature 97.8 DegF Pulse Rate 81 bpm Respiratory Rate 02 Sat Mode of Delivery 99 %/Room air You can now view a summary of your hospital visit from the comfort of your home through a free online portal called [facility]. [facility] is a website that allows you to securely view your medical information including discharge summary, medications and follow-up visits. ??You can alsosend a secure electronic message to your doctor???s office to request appointments, renew medications or just ask a question. You can enroll at [email or web address] or register during your next office visit. Disclaimer:?? The information provided is of a general nature and is intended to be used in conjunction with the recommendations and advice of your health care practitioner. ??Every effort has been made to ensure that the information provided is accurate and complete at the time it is provided to you however, as your needs change, or, as new ??information becomes available, different or additional instructions may be required. If you have questions, please consult with your primary care provider or pharmacist, as appropriate. ??This information is not intended to serve as substitution for assessment and evaluation by a qualified health care provider. If you do not have a primary care provider, you may find a [facility] provider by calling [facility] at [phone]. For information about the plan of care including goals and instructions for your diagnosis, please see the patient education orders section of this document. Patient Education Materials?? The content of this educational material or handout may have been modified, supplemented, or adapted from its original content and format to support your individualized medical care. Patient Care team information Care Team Personnel Name: Pierre MCLEOD, Flora Núñez Position: [facility] PCO Associate Professional Member Role: PCP Address: Address: [address] [place] [address] [address] [place] [address]- Care Team Related Persons Name: BETH LOZA Address: [address] [address] Name: CAROL LOZA Address: [address] Name: MARTHA LOO Address: [address] [place] [address]
--- OUTSIDE RECORDS SUMMARY | 2023-07-21 14:26 | XMS_ITS | Continuity of Care Document ---
Author Organization [facility] Address [address] [place] [address]- Care Team Providers Care Mechanic Chief Name Role Phone Pierre AIRCRAFT RESTORER, Flora Núñez Primary Care Physician Encounter [facility] Date(s): 01/11/22 - 09/26/[address] [id number] Attending Physician: Chris Swan MD Admitting Physician: Chris Swan MD Allergies, Adverse Reactions, Alerts No Known Allergies Immunizations Given and Recorded Vaccine Date Status Refusal Reason influenza virus vaccine, inactivated 1 12/29/20 Gi markie SARS-CoV-2 (COVID-19) mRNA-1273 vaccine 04/04/20 R ecorded SARS-CoV-2 (COVID-19) mRNA-1273 vaccine 03/04/20 R ecorded tetanus/diphtheria/pertussis, acel(Tdap) 2 04/05/19 Given Influenza Virus Vaccine (oldterm) 3 12/08/18 Recor ded 1Result Comment: [facility]# [id number] 2Result Comment: [facility] [id number] 3Result Comment: work Medications CPAP Machine See [...] 1 Refills, Maintenance, 10/29/21 14:00:00 EDT, Cream, [facility], Partial fill upon patient request [...] 01/04/22 15:53:00 EDT, Route to Pharmacy Electronically, [facility], Partial fill upon patient request if the prescription is for... Start Date: 01/04/22 Stop Date: 05/04/22 Status: Ordered loratadine 10 mg oral tablet 10 mg, 1, tablet, By Mouth, Daily, # 30 tablet, Refills 0, Tot. Refills 0, Maintenance, 10/29/21 14:03:00 EDT, Route to Pharmacy Electronically, [facility], Partial fill upon patient request if the prescription is for a schedule II opioid drCristiano Start Date: 10/29/21 Stop Date: 11/28/21 Status: Ordered NuLYTELY with Flavor Packs oral powder for reconstitution See Instructions, split prep method. drink one half the night before procedure at 5pm. drink secondhalf six hours prior to procedure., # 4,000 mL, 0 Refills, Maintenance, 08/26/22 17:00:00 EDT, [facility], test date, split prep method. pierre Start Date: 08/26/22 Status: Ordered omeprazole 20 mg oral delayed release tablet 1 tablet = 20 mg, By Mouth, Daily, # 30 tablet, 0 Refills, Maintenance, 06/18/21 14:53:00 EDT, CR Tablet, [facility], Partial fill upon patient request if the prescription is for a scheduleII opioid drug., 162, cm, 06/18/21 14:35:00 EDT, He... Start Date: 06/18/21 Status: Ordered Problem List Condition Confirmation Course Effective Dates [facility] Informant Allergic rhinitis Confirmed Active Chronic headaches Confirmed Active Chronic GERD Confirmed Active Severe obesity Confirmed Active Sleep apnea Confirmed Active Social History Social History Type Response Smoking Status Never (less than 100 in lifetime) entered on: 10/19/18 Sex Note * Event Display: Final Diagnosis, D/C Summary Authored Date: [id number] Patient Care team information Care Team Personnel Name: Pierre MCLEOD, Flora Núñez Position: [facility] PCO Associate Professional Member Role: PCP Address: Address: [address] [place] [address]- Care Team Related Persons Name: BETH LOZA Address: [address] [place] [address] Name: CAROL OLZA Address: [address] [place] [address] Name: MARTHA LOO Address: [address] [place] [address]
--- OUTSIDE RECORDS SUMMARY | 2023-07-21 14:26 | XMS_ITS | Continuity of Care Document ---
Author Organization [facility] Address [address] [place] [address]- Care Team Providers Care Billet Recorder Name Role Phone Pierre MCLEOD, Flora Núñez Primary Care Physician Encounter [facility] Date(s): 08/26/20 - 10/03/20 [facility] [address] [place] [address]- Attending Physician: Flora Jay NP Allergies, Adverse Reactions, Alerts Substance Reaction Severity Status NKA Active Immunizations Given and Recorded Vaccine Date Status Refusal Reason SARS-CoV-2 (COVID-19) mRNA-1273 vaccine 04/04/20 R ecorded SARS-CoV-2 (COVID-19) mRNA-1273 vaccine 03/04/20 R ecorded tetanus/diphtheria/pertussis, acel(Tdap) 1 04/05/19 Given Influenza Virus Vaccine (oldterm) 2 12/08/18 Recor ded 1Result Comment: [facility] [id number] 2Result Comment: work Medications betamethasone topical dipropionate [...] Refills, Maintenance, 12/21/19 8:19:00 EDT, EC Tablet, [facility], 162, cm, 12/21/19 8:09:00 EDT, Height Start Date: 12/21/19 Status: Ordered Singulair 10 mg oral tablet 10 mg, 1, tablet, By Mouth, Daily, # 30 tablet, Refills 0, Tot. Refills 0, Maintenance, 05/31/18 16:17:26 EDT, Route to Pharmacy Electronically, [id number], [facility] Start Date: 05/31/18 Stop Date: 06/30/18 Status: Ordered Problem List Condition Effective Dates Status Health Status Inform ant Allergic rhinitis(Confirmed) Active Chronic headaches(Confirmed) Active Chronic GERD(Confirmed) Active Sleep apnea(Confirmed) Active Vital Signs Most recent to oldest [Reference Range]: 1 Height 162 cm (09/03/20 1:18 PM) Social History Social History Type Response Smoking Status Never (less than 100 in lifetime) entered on: 10/19/18 Sex
--- OUTSIDE RECORDS SUMMARY | 2023-07-21 14:26 | XMS_ITS | Continuity of Care Document ---
Author Organization [facility] Address [address] [place] [address]- Care Team Providers Care Geology Technician Name Role Phone Pierre MCLEOD, Flora Núñez Primary Care Physician Encounter [facility] Date(s): 10/29/21 - 11/05/21 [facility] [address] [place] [address]- Attending Physician: Not on Staff, Attending MD Allergies, Adverse Reactions, Alerts No Known Allergies Immunizations Given and Recorded Vaccine Date Status Refusal Reason influenza virus vaccine, inactivated 1 12/29/20 Gi markie SARS-CoV-2 (COVID-19) mRNA-1273 vaccine 04/04/20 R ecorded SARS-CoV-2 (COVID-19) mRNA-1273 vaccine 03/04/20 R ecorded tetanus/diphtheria/pertussis, acel(Tdap) 2 04/05/19 Given Influenza Virus Vaccine (oldterm) 3 12/08/18 Recor ded 1Result Comment: [facility]# [id number] 2Result Comment: [facility] [phone] 3Result Comment: work Medications CPAP Machine See [...] 1 Refills, Maintenance, 10/29/21 14:00:00 EDT, Cream, [facility], Partial fill upon patient request [...] 10/08/21 13:20:00 EDT, Route to Pharmacy Electronically, [facility], Partial fill upon patient request if the prescription is for... Start Date: 10/08/21 Stop Date: 12/07/21 Status: Ordered loratadine 10 mg oral tablet 10 mg, 1, tablet, By Mouth, Daily, # 30 tablet, Refills 0, Tot. Refills 0, Maintenance, 10/29/21 14:03:00 EDT, Route to Pharmacy Electronically, [facility], Partial fill upon patient request if the prescription is for a schedule II opioid drCristiano Start Date: 10/29/21 Stop Date: 11/28/21 Status: Ordered omeprazole 20 mg oral delayed release tablet 1 tablet = 20 mg, By Mouth, Daily, # 30 tablet, 0 Refills, Maintenance, 06/18/21 14:53:00 EDT, CR Tablet, [facility], Partial fill upon patient request if the prescription is for a scheduleII opioid drug., 162, cm, 06/18/21 14:35:00 EDT, He... Start Date: 06/18/21 Status: Ordered Problem List Condition Effective Dates Status Health Status Inform ant Allergic rhinitis(Confirmed) Active Chronic headaches(Confirmed) Active Chronic GERD(Confirmed) Active Severe obesity(Confirmed) Active Sleep apnea(Confirmed) Active Vital Signs Most recent to oldest [Reference Range]: 1 Height 162 cm (10/29/21 1:43 PM) Weight 107.9 kg (10/29/21 1:43 PM) Oxygen Saturation [94-100 %] 98 % (10/29/21 1:43 PM) Pulse Rate [55-90 bpm] 97 bpm *H* (10/29/21 1:43 PM) Body Mass Index [18.5-24.99] 41.11 *>HHI* (10/29/21 1:43 PM) Blood Pressure [90-138/55-84 mm Hg] 134/ 76mm Hg (10/29/21 1:43 PM) Temperature [96.8-100.4 DegF] 98.1 DegF (10/29/21 1:43 PM) Blood pressure sites Arm, left (10/29/21 1:43 PM) Temperature Route Oral (10/29/21 1:43 PM) Weight Obtained Via Standing scale (10/29/21 1:43 PM) Social History Social History Type Response Smoking Status Never (less than 100 in lifetime) entered on: 10/19/18 Sex Care Team Personnel Name: Flora Jay NP Address: [address] [place] [id number]
--- OUTSIDE RECORDS SUMMARY | 2023-07-21 14:26 | XMS_ITS | Continuity of Care Document ---
Author Organization [facility] Adult Address [address] [place] [address]- Care Team Providers Care Cable Respooler Name Role Phone Pierre MCLEOD, Flora Núñez Primary Care Physician Encounter [facility] Date(s): 10/23/22 - 02/20/23 [facility] [address] [place] [phone]- Attending Physician: Flora Jay NP Allergies, Adverse [...] [facility]# [id number] 2Result Comment: [facility] [id number] 3Result Comment: work Medications CPAP Machine See [...] 1 Refills, Maintenance, 10/29/21 14:00:00 EDT, Cream, [facility], Partial fill upon patient request if the [...] 01/04/22 15:53:00 EDT, Route to Pharmacy Electronically, [facility], Partial fill upon patient request if the prescription is for... Start Date: 01/04/22 Stop Date: 05/04/22 Status: Ordered loratadine 10 mg oral tablet 10 mg, 1, tablet, By Mouth, Daily, # 30 tablet, Refills 0, Tot. Refills 0, Maintenance, 10/29/21 14:03:00 EDT, Route to Pharmacy Electronically, [facility], Partial fill upon patient request if the prescription is for a schedule II opioid drCristiano Start Date: 10/29/21 Stop Date: 11/28/21 Status: Ordered NuLYTELY with Flavor Packs oral powder for reconstitution See Instructions, split prep method. drink one half the night before procedure at 5pm. drink secondhalf six hours prior to procedure., # 4,000 mL, 0 Refills, Maintenance, 08/26/22 17:00:00 EDT, [facility], test date, split prep method. pierre Start Date: 08/26/22 Status: Ordered omeprazole 20 mg oral delayed release tablet 1 tablet = 20 mg, By Mouth, Daily, # 30 tablet, 0 Refills, Maintenance, 06/18/21 14:53:00 EDT, CR Tablet, [facility], Partial fill upon patient request if the prescription is for a scheduleII opioid drug., 162, cm, 06/18/21 14:35:00 EDT, He... Start Date: 06/18/21 Status: Ordered Problem List Condition Confirmation Course Effective Dates [facility] atus Informant Allergic rhinitis Confirmed Active Chronic headaches Confirmed Active Chronic GERD Confirmed Active Severe obesity Confirmed Active Sleep apnea Confirmed Active Social History Social History Type Response Smoking Status Never (less than 100 in lifetime) entered on: 10/19/18 Sex Patient Care team information Care Team Personnel Name: Pierre MCLEOD, Flora Núñez Position: [facility] PCO Associate Professional Member Role: PCP Address: Address: [address] [place] [address] [address] [place] [address]- Care Team Related Persons Name: BETH LOZA Address: [address] [place] [address] Name: CAROL LOZA Address: [address] [place] [address] Name: MARTHA LOO Address: [address] [place] [address]
== END 2023-07-21 14:26 | disposition home or self-care (01) ==
LOC: HO.ED 14:22
PROVIDERS: Emergency Provider Student in an Organized Health Care Education/Training Program
DX: Z04.1 Encounter for examination and observation following transport accident (principal); G89.11 Acute pain due to trauma; M54.50 Low back pain, unspecified; M25.551 Pain in right hip
CPT/HCPCS: 72100; 73502; 99282; 99284